=== PATIENT | female | born 1975 | race Caucasian/White ===

== ENCOUNTER 2018-09-18 20:50 | Emergency (ER) | payer BC, MEDICARE ==
--- NOTE | 2018-09-18 21:12 | UC ---
Abdominal Pain Female HPI - HPI Summary HPI Summary: 43-year-old female presents with 3 day history of progressively worsening generalized abdominal pain. States that she has had a couple of days of vaginal spotting. Patient has had history of multiple recurrences of diverticulitis requiring hospitalization. She has had multiple abdominal surgeries including gastric sleeve, appendectomy, cholecystectomy, and a total hysterectomy. Last bowel movement was this morning. Reports loose brown stool. States she normally alternates between constipation and loose stool. Denies fever, chills, nausea, vomiting, blood in stool, melena, back or flank pain, dysuria, frequency, urgency, or vaginal discharge. - History of Current Complaint Stated Complaint: ABD PAIN Time Seen by Provider: 09/18/18 20:59 Hx Obtained From: Patient Allergies/Adverse Reactions: Allergies Allergy/AdvReac Type Severity Reaction Status Date / Time Penicillins Allergy Intermediate Hives Verified 09/18/18 21:15 Sulfa (Sulfonamide Allergy Intermediate Swelling Verified 09/18/18 21:15 Antibiotics) Latex, Natural Rubber Allergy Mild Unknown Verified 09/18/18 21:15 Reaction Details Home Medications: Home Medications EPINEPHrine [Epipen] 0.3 ml INJ Q12HR PRN 09/18/18 [History Confirmed 09/18/18] Gabapentin [Neurontin] 100 mg PO QID 09/18/18 [History Confirmed 09/18/18] hydrOXYzine HCL TAB* [Atarax TAB 50 MG *] 100 mg PO DAILY 09/18/18 [History Confirmed 09/18/18] traZODone TAB* [Desyrel TAB*] 150 mg PO DAILY 09/18/18 [History Confirmed ] PMH/Surg Hx/FS Hx/Imm Hx - Additional Past Medical History Additional PMH: Osteoarthritis, benign lung tumors GI/ History: Diverticulitis - Surgical History Surgical History: Yes - Family History Known Family History: Positive: Non-Contributory Family History: Appendectomy, cholecystectomy, gastric sleeve, thoracic surgery for lung tumors, total hysterectomy, partial bowel resection - Social History Lives: With Family Review of Systems All Other Systems Reviewed And Are Negative: Yes Constitutional: Negative: Fever, Chills Respiratory: Negative: Shortness Of Breath, Cough Cardiovascular: Negative: Palpitations, Chest Pain Gastrointestinal: Positive: Abdominal Pain. Negative: Vomiting, Diarrhea, Nausea Genitourinary: Positive: Abnormal Bleeding. Negative: Dysuria, Hematuria, Frequency, Urgency, Vaginal/Penile Discharge Musculoskeletal: Positive: Negative Neurological: Positive: Negative Is Patient Immunocompromised?: No Physical Exam - Summary Physical Exam Summary: GENERAL APPEARANCE: Well developed, well nourished, alert and cooperative, and appears to be in no acute distress. CARDIAC: Normal S1 and S2. No S3, S4 or murmurs. Rhythm is regular. There is no peripheral edema, cyanosis or pallor. Extremities are warm and well perfused. Capillary refill is less than 2 seconds. Peripheral pulses intact. LUNGS: Clear to auscultation without rales, rhonchi, wheezing or diminished breath sounds. ABDOMEN: Positive bowel sounds. Soft, nondistended. Significant diffuse abdominal tenderness without guarding or rebound. No masses or hepatosplenomegally. No CVA tenderness. MUSKULOSKELETAL: ROM intact to all extremities. No joint erythema or tenderness. Normal muscular development. Normal gait. SKIN: Skin normal color, texture and turgor with no lesions or eruptions. Triage Information Reviewed: Yes Vital Signs Reviewed: Yes Abd Pain Female Course/Dx - Course Course Of Treatment: 43-year-old female presents with 3 day history of progressively worsening generalized abdominal pain. States that she has had a couple of days of vaginal spotting. Patient has had history of multiple recurrences of diverticulitis requiring hospitalization. She has had multiple abdominal surgeries including gastric sleeve, appendectomy, cholecystectomy, and a total hysterectomy. Last bowel movement was this morning. Reports loose brown stool. States she normally alternates between constipation and loose stool. Denies fever, chills, nausea, vomiting, blood in stool, melena, back or flank pain, dysuria, frequency, urgency, or vaginal discharge. Afebrile. Vital signs stable. On exam patient had significant diffuse abdominal tenderness without guarding or rebound. Remainder of exam was unremarkable. Point-of- care urinalysis showed 1+ leukocyte esterase, and trace lysed blood. Urine culture is pending. Based on the patient's history and exam I discussed with her my concern for the possibility of diverticulitis and I'm recommending that she be evaluated in the emergency room further. Patient is agreeable to this and is electing to transport by private vehicle with her friend driving. - Differential Dx/Diagnosis Differential Diagnosis: Bowel Obstruction, Diverticulitis, Urinary Tract Infection Provider Diagnosis: Acute abdominal pain Discharge - Sign-Out/Discharge Documenting (check all that apply): Patient Departure All imaging exams completed and their final reports reviewed: No Studies - Discharge Plan Condition: Stable Disposition: HOME-RECOMMEND TO ED Patient Education Materials: Acute Abdominal Pain (ED) Referrals: No Primary Care Phys,NOPCP [Primary Care Provider] - Additional Instructions: The urine test performed in the clinic today showed a small amount of white blood cells and blood however based on your history and exam I am concerned that this may be her diverticulitis and I'm recommending that you go to the emergency room for further evaluation. Go straight to the ER from here. Do not eat or drink anything until after you have been evaluated. - Billing Disposition and Condition Condition: STABLE Disposition: Home-Recommend to ED
[2018-09-18 21:14] VITALS: BP 115/58
== END 2018-09-18 21:42 | disposition home health service (06) ==
LOC: UCEAST 20:50
DX: R10.84 Generalized abdominal pain (principal)
CPT/HCPCS: 81003; 87086; 99202; G0463

== ENCOUNTER 2018-09-18 22:19 | Emergency (ER) | payer MEDICARE, BC ==
[2018-09-18] MEDS ORDERED: Morphine 4 MG/ML VIAL (1 ml) 4 MG/ML VIAL IV ONE ×2 (22:34→23:55)
[2018-09-18] MEDS ORDERED: Ondansetron INJ* 2 MG/ML VIAL IV ONE (22:34)
[2018-09-18] MEDS ORDERED: NS 0.9% 1000 ML** 2,000 ML IV ONE (22:35)
--- NOTE | 2018-09-18 22:38 | ED ---
GI/ HPI - HPI Summary HPI Summary: 43-year-old female presents with abdominal pain for the past 2 days. States pain is diffuse. started on one side but unsure what side. She states this feels likr diverticulitis in the past. Has had a bowel resection due to diverticulitis. She admits to some loose stool. Has history of loose although with her IBS. She denies any nausea vomiting. She denies any dysuria or hematuria. No flank pain. No fevers. No chest pain or shortness of breath or cough. She states the pain is constant. Has history of appendectomy gallbladder removed and gastric sleeve. - History of Current Complaint Chief Complaint: EDAbdPain Time Seen by Provider: 09/18/18 22:25 Stated Complaint: ABD PAIN, FROM CC PER PT Pain Intensity: 6 - Allergy/Home Medications Allergies/Adverse Reactions: Allergies Allergy/AdvReac Type Severity Reaction Status Date / Time Penicillins Allergy Intermediate Hives Verified 09/18/18 21:15 Sulfa (Sulfonamide Allergy Intermediate Swelling Verified 09/18/18 21:15 Antibiotics) Latex, Natural Rubber Allergy Mild Unknown Verified 09/18/18 21:15 Reaction Details Home Medications: Home Medications Docusate CAP* [Colace Cap*] 100 mg PO DAILY 09/18/18 [History Confirmed 09/18/18 ] L.acidoph,Paracasei, B.lactis [Probiotic] 1 each PO DAILY 09/18/18 [History Confirmed 09/18/18] Multivitamin [Multiple Vitamins] 1 tab PO DAILY 09/18/18 [History Confirmed 06/04] Non Formulary Med2* 1 PO .1 09/18/18 [History] PMH/Surg Hx/FS Hx/Imm Hx Endocrine/Hematology History: Denies: Hx Diabetes Cardiovascular History: Denies: Hx Hypertension Respiratory History: Denies: Hx Asthma, Hx Chronic Obstructive Pulmonary Disease (COPD) - Surgical History Surgery Procedure, Year, and Place: bariatric- sleeve. bowel resection - Immunization History Immunizations Up to Date: Yes Infectious Disease History: No Infectious Disease History: Denies: Traveled Outside the [place] in Last 30 Days - Family History Known Family History: Positive: Non-Contributory Family History: Appendectomy, cholecystectomy, gastric sleeve, thoracic surgery for lung tumors, total hysterectomy, partial bowel resection - Social History Alcohol Use: Occasionally Substance Use Type: Reports: Marijuana Substance Use Comment - Amount & Last Used: medical - occasionally Smoking Status (MU): Never Smoked Tobacco Review of Systems Negative: Fever Negative: Chest Pain Negative: Shortness Of Breath Positive: Abdominal Pain, Diarrhea. Negative: Vomiting, Nausea All Other Systems Reviewed And Are Negative: Yes Physical Exam Triage Information Reviewed: Yes Vital Signs On Initial Exam: Initial Vitals Temp Pulse Resp BP Pulse Ox 97.3 F 83 18 134/85 99 09/18/18 22:22 09/18/18 22:22 09/18/18 22:22 09/18/18 22:22 09/18/18 22:22 Vital Signs Reviewed: Yes Appearance: Positive: Well-Appearing Skin: Positive: Warm, Dry Head/Face: Positive: Normal Head/Face Inspection Eyes: Positive: Normal, Conjunctiva Clear ENT: Positive: Pharynx normal Respiratory/Lung Sounds: Positive: Clear to Auscultation, Breath Sounds Present Cardiovascular: Positive: Normal, RRR Abdomen Description: Positive: Soft, Other: - diffuse tenderness. Negative: CVA Tenderness (R), CVA Tenderness (L) Bowel Sounds: Positive: Present Musculoskeletal: Positive: Normal Neurological: Positive: Normal Psychiatric: Positive: Normal Diagnostics - Vital Signs Vital Signs Temp Pulse Resp BP Pulse Ox 09/18/18 22:22 97.3 F 83 18 134/85 99 - Laboratory Result Diagrams: 09/18/18 22:53 09/18/18 22:53 Lab Statement: Any lab studies that have been ordered have been reviewed, and results considered in the medical decision making process. - CT abd CT Interpretation Completed By: Radiologist Summary of CT Findings: IMPRESSION: There is colonic diverticulosis without evidence for acute diverticulitis. Re-Evaluation - Re-Evaluation First Eval Re-Evaluation Time: 23:59 Change: Worse Comment: morphine helped but pain has returned. GIGU Course/Dx - Course Course Of Treatment: 43-year-old female presents with abdominal pain for the past 2 days. States pain is diffuse. started on one side but unsure what side. She states this feels likr diverticulitis in the past. Has had a bowel resection due to diverticulitis. She admits to some loose stool. Has history of loose although with her IBS. She denies any nausea vomiting. She denies any dysuria or hematuria. No flank pain. No fevers. No chest pain or shortness of breath or cough. She states the pain is constant. Has history of appendectomy gallbladder removed and gastric sleeve. On exam diffuse abdominal tenderness. wbc normal. crp normal. urine looks like uti. patient states has hx of such. will place on cipro as has allergy to cephalosporins, PCN, and sulfa. CT abd no diverticulitis. will treat as uti with cipro. patient understand and agrees with plan. - Diagnoses Differential Diagnoses - Female: Bowel Obstruction, Diverticulosis, Urinary Tract Infection Provider Diagnoses: Abdominal pain, UTI (urinary tract infection) Discharge - Sign-Out/Discharge Documenting (check all that apply): Patient Departure Patient Received Moderate/Deep Sedation with Procedure: No - Discharge Plan Condition: Good Disposition: HOME Prescriptions: Ciprofloxacin TAB* [Cipro 500 MG TAB*] 500 mg PO BID #9 tab Patient Education Materials: Urinary Tract Infection in Women (ED) Referrals: [facility] [place] [facility] [Outside] Additional Instructions: Take Cipro twice a day for 5 days drink plenty of fluids take tyenlol every 6 hours as needed for pain Follow up with primary Return to ED if develop any new or worsening symptoms - Billing Disposition and Condition Condition: GOOD Disposition: Home
[2018-09-18] MEDS ORDERED: diPHENhydraMINE IV* 50 MG/ML 1 ml VIAL (BENADRYL) IV ONE (22:52)
[2018-09-18 23:05] LABS: ABS Lymphocytes 2.2 10^3/ul (1.0-4.8); ABS Monocytes 0.5 10^3/ul (0-0.8); ABS Neutrophils 2.6 10^3/ul (1.5-7.7); Eosinophil % 0.1 %; Hematocrit 35 % (35-47); Hemoglobin 11.9 g/dL (12.0-16.0); Lymphocyte % 41.9 %; Mean Corpuscular HGB Conc 34 g/dL (31-36); Mean Corpuscular Hemoglobin 30 pg (27-31); Mean Corpuscular Volume 87 fL (80-97); Mean Platelet Volume 7.2 fL (7.4-10.4); Platelet Count 195 10^3/uL (150-450); Red Blood Count 3.99 10^6 /uL (3.70-4.87); Red Cell Distribution Width 14 % (10-15); White Blood Count 5.3 10^3/uL (3.5-10.8)
[2018-09-18 23:25] LABS: ALT 17 U/L (7-52); AST 20 U/L (13-39); Albumin/Globulin Ratio 1.8 (1-3); Alkaline Phosphatase 68 U/L (34-104); Anion Gap 4 mmol/L (2-11); BUN/Creatinine Ratio 19.3 (8-20); Blood Urea Nitrogen 16 mg/dL (6-24); C Reactive Protein < 1.00 mg/L (<8.01); CO2 Carbon Dioxide 31 mmol/L (22-32); Chloride 107 mmol/L (101-111); EGFR African American 90.8 (>60); Globulin 2.2 g/dL (2-4); Glucose 97 mg/dL (70-100); Potassium 4.1 mmol/L (3.5-5.0); Sodium 142 mmol/L (135-145); Total Protein 6.2 g/dL (6.4-8.9)
[2018-09-18 23:27] LABS: Urine Appearance Cloudy; Urine Bacteria Absent (Absent); Urine Bilirubin Negative (Negative); Urine Blood 2+ (Negative); Urine Color Yellow; Urine Glucose Negative (Negative); Urine Ketones Negative (Negative); Urine Nitrite Negative (Negative); Urine Protein Negative (Negative); Urine Red Blood Cell 3+(>10/hpf) (Absent); Urine Specific Gravity 1.023 (1.010-1.030); Urine Squamous Epithelial Cell Present (Absent); Urine Urobilinogen Negative (Negative); Urine White Blood Cell 3+(>20/hpf) (Absent)
[2018-09-18 23:29] LABS: HCG Pregnancy 1.15 mIU/mL
[2018-09-18] MEDS ORDERED: Iohexol 300* (CONTRAST) 10 ML SDV IV ONE ×2 (23:35→23:51)
[2018-09-18] MEDS ORDERED: Ciprofloxacin 400MG IVPREMIX(* 400 MG/200 ML BAG IVPB ONE (23:56)
[2018-09-19 01:46] VITALS: BP 113/77
== END 2018-09-19 01:42 | disposition home or self-care (01) ==
LOC: ED 22:19
DX: K57.90 Diverticulosis of intestine, part unspecified, without perforation or abscess without bleeding (principal); R10.9 Unspecified abdominal pain; N39.0 Urinary tract infection, site not specified; Z88.0 Allergy status to penicillin; Z88.2 Allergy status to sulfonamides; R19.7 Diarrhea, unspecified
CPT/HCPCS: 36415; 74177; 80053; 81003; 81015; 83605; 83690; 83735; 84702; 85025; 86140; 96374; 96375; 96376; 99284; J0744; J1200; J2270; J2405; Q9967

== ENCOUNTER 2018-10-30 20:17 | Emergency (ER) | payer BC, MEDICARE ==
[2018-10-30 20:23] VITALS: BP 113/70
--- NOTE | 2018-10-30 20:38 | UC ---
Knee Pain HPI - HPI Summary HPI Summary: Patient is a 43-year-old female here with a right knee injury. Patient fell down the stairs this morning down 4 stairs. Patient landed on her right knee. Patient's had pain in her lateral knee since then. Patient is able labially but has pain when she does. Patient has no numbness or tingling. Patient had no other disease. Patient has had meniscus and fracture surgery in that knee before. Medications reviewed - History of Current Complaint Chief Complaint: UCLowerExtremity Stated Complaint: KNEE INJURY Time Seen by Provider: 10/30/18 20:26 Hx Obtained From: Patient Onset/Duration: Sudden Onset Severity Initially: Moderate Severity Currently: Moderate Pain Intensity: 7 - Allergies/Home Medications Allergies/Adverse Reactions: Allergies Allergy/AdvReac Type Severity Reaction Status Date / Time Penicillins Allergy Intermediate Hives Verified 10/30/18 20:23 Sulfa (Sulfonamide Allergy Intermediate Swelling Verified 10/30/18 20:23 Antibiotics) Latex, Natural Rubber Allergy Mild Unknown Verified 10/30/18 20:23 Reaction Details bupropion [From Wellbutrin] Allergy AGRESSIVELY Verified 10/30/18 20:23 VIOLENT BEHAVIOR PMH/Surg Hx/FS Hx/Imm Hx Previously Healthy: Yes - Surgical History Surgical History: Yes Surgery Procedure, Year, and Place: bariatric- sleeve. bowel resection. 3 C- SECTIONS. THORACIC SURGERY, APPENDECTOMY, CHOLECYSTECTOMY, HERNIA REPAIRS, BILAT PATELLAR RELEASES, MENISCUS REPAIR RIGHT - Family History Known Family History: Positive: Non-Contributory Family History: Appendectomy, cholecystectomy, gastric sleeve, thoracic surgery for lung tumors, total hysterectomy, partial bowel resection - Social History Alcohol Use: Occasionally Substance Use Type: None Substance Use Comment - Amount & Last Used: medical - occasionally Smoking Status (MU): Never Smoked Tobacco Review of Systems All Other Systems Reviewed And Are Negative: Yes Physical Exam - Summary Physical Exam Summary: Vital Signs Reviewed: Yes A+Ox3, no distress Eyes: Conjunctiva Clear ENT: Hearing grossly normal neck: supple Respiratory: Positive: No respiratory distress, No accessory muscle use Cardiovascular: skin color reflect adequate perfusion Musculoskeletal Exam: Right knee with tenderness on the lateral aspect. Full range of motion of both active and passive modality. No swelling or erythema. No lateral or medial joint laxity. Anterior/posterior drawer sign negative. Neurological: Positive: Alert, ambulatory without difficulty Vital Signs: Initial Vital Signs Temp 98.9 F 10/30/18 20:18 Pulse 92 10/30/18 20:18 Resp 16 10/30/18 20:18 BP 113/70 10/30/18 20:18 Pulse Ox 99 10/30/18 20:18 Knee Pain Course/Dx - Course Course Of Treatment: Patient is here after mechanical fall on her right knee. Patient had no other injury. Patient had a negative knee x-ray per my read. Patient had an Scotty wrap applied and was given primary care and orthopedic surgery follow-up. - Differential Dx/Diagnosis Differential Diagnosis/HQI/PQRI: Abrasion, Contusion, Dislocation, Fracture ( Closed), Internal Derangement Of Knee Provider Diagnosis: Right knee sprain, Fall Discharge - Sign-Out/Discharge Documenting (check all that apply): Patient Departure All imaging exams completed and their final reports reviewed: No - Discharge Plan Condition: Stable Disposition: HOME Referrals: [facility] [place] [facility] [Outside] Bill Delarosa MD [Medical Doctor] - No Primary Care Phys,NOPCP [Primary Care Provider] - Additional Instructions: Please rest, ice, elevation knee at the end of the day. Please call your primary care doctor or orthopedic surgeon for further management if you continue to have symptoms. - Billing Disposition and Condition Condition: STABLE Disposition: Home
--- NOTE | 2018-10-31 08:02 | UC ---
- Progress Note Progress Note: wet read correct Course/Dx - Diagnoses Provider Diagnoses: Right knee sprain, Fall Discharge - Sign-Out/Discharge Documenting (check all that apply): Post-Discharge Follow Up All imaging exams completed and their final reports reviewed: Yes - Discharge Plan Condition: Stable Disposition: HOME Referrals: [facility] [place] [facility] [Outside] Bill Delarosa MD [Medical Doctor] - No Primary Care Phys,NOPCP [Primary Care Provider] - Additional Instructions: Please rest, ice, elevation knee at the end of the day. Please call your primary care doctor or orthopedic surgeon for further management if you continue to have symptoms. - Billing Disposition and Condition Condition: STABLE Disposition: Home
== END 2018-10-30 21:15 | disposition home or self-care (01) ==
LOC: UCEAST 20:17
DX: S83.91XA Sprain of unspecified site of right knee, initial encounter (principal); W10.9XXA Fall (on) (from) unspecified stairs and steps, initial encounter; Y92.9 Unspecified place or not applicable; Z88.0 Allergy status to penicillin; Z88.2 Allergy status to sulfonamides; Z91.040 Latex allergy status; Z98.84 Bariatric surgery status
CPT/HCPCS: 99212; G0463

== ENCOUNTER 2019-01-20 11:58 | Emergency (ER) | payer MEDICARE, OTHER ==
--- OUTSIDE RECORDS SUMMARY | 2019-01-20 12:09 | XMS REPORT | Continuity of Care Document ---
:1975 External Reference #:[id number] Author Name Yadira Moise M.D. 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 Problems Active Problems Provider Date Localized, primary osteoarthritis Gerson Almaguer MD Onset: 11/12/2018 Social History Type Date Description Comments Sex Unknown ETOH Use Occasionally consumes alcohol Tobacco Use Start: Unknown Patient has never smoked Smoking Status Reviewed: 12/23/18 Patient has never smoked Exercise Type/Frequency Does not exercise Allergies, Adverse Reactions, Alerts Active Allergies Reaction Severity Comments Date Penicillin 11/12/2018 Sulfa Antibiotics 11/12/2018 Latex 11/12/2018 Adhesive 11/12/2018 Medications Active Medications SIG Qnty Indications Ordering Provider Date Hydroxyzine Pamoate Unknown 50mg Capsules Trazodone HCL Unknown 150mg Tablets Gabapentin Unknown 100mg Capsules Multivital Unknown Colace 2-In-1 Unknown Fiber Unknown Epipen 2-Prince Unknown Probiotic Unknown Immunizations Description No Information Available Vital Signs Date Vital Result Comment 12/23/2018 8:32am Height 65 inches 5'5" Weight 165.00 lb Heart Rate 84 /min BP Systolic 124 mmHg BP Diastolic 82 mmHg Body Temperature 96.6 F Pain Level 6 BMI (Body Mass Index) 27.5 kg/m2 12/03/2018 2:16pm Height 65 inches 5'5" Weight 165.00 lb Heart Rate 88 /min BP Systolic Sitting 122 mmHg BP Diastolic Sitting 80 mmHg Body Temperature 98.4 F Pain Level 8 BMI (Body Mass Index) 27.5 kg/m2 Results Description No Information Available Procedures Description No Information Available Medical Devices Description No Information Available Encounters Type Date Location Provider Dx Diagnosis Office Visit 12/03/2018 [facility] Gerson Almaguer MD M17.11 Unilateral primary 2:15p at [place] osteoarthritis, right knee M23.303 Oth meniscus derangements, unsp medial meniscus, right knee Office Visit 11/12/2018 Tiffanie Almaguer, M17.11 Unilateral primary 2:30p [facility], [place] right knee M17.12 Unilateral primary osteoarthritis, left knee M17.0 Bilateral primary osteoarthritis of knee Assessments Date Code Description Provider 12/23/2018 M25.562 Pain in left knee Yadira Moise M.D. 12/23/2018 M25.561 Pain in right knee Yadira Moise M.D. 12/23/2018 M25.462 Effusion, left knee Yadira Moise M.D. 12/23/2018 M25.461 Effusion, right knee Yadira Moise M.D. 12/23/2018 M17.0 Bilateral primary osteoarthritis of knee Yadira Moise M.D. 12/23/2018 M23.303 Other meniscus derangements, unspecified medial Yadira Moise M.D. meniscus, right knee 12/03/2018 M17.11 Unilateral primary osteoarthritis, right knee Gerson Almaguer MD 12/03/2018 M23.303 Other meniscus derangements, unspecified medial Gerson Almaguer MD meniscus, right knee 11/12/2018 M17.11 Unilateral primary osteoarthritis, right knee Gerson Almaguer MD 11/12/2018 M17.12 Unilateral primary osteoarthritis, left knee Gerson Almaguer MD 11/12/2018 M17.0 Bilateral primary osteoarthritis of knee Gerson Almaguer MD Plan of Treatment 12/23/2018 - Yadira Moise M.D.M25.562 Pain in left kneeM25.561 Pain in right kneeM25.462 Effusion, left kneeM25.461 Effusion, right kneeM17.0 Bilateral primary osteoarthritis of kneeFollow up:Follow up: [employer] authorization needed. Follow up appointment LEONEL. bilat kneeM23.303 Other meniscus derangements, unspecified medial meniscus, right knee Functional Status Description No Information Available Mental Status Description No Information Available Referrals Description No Information Available
--- OUTSIDE RECORDS SUMMARY | 2019-01-20 12:09 | XMS REPORT | Continuity of Care Document ---
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 Problems Active Problems Provider Date Localized, primary osteoarthritis Gerson Almaguer MD Onset: 11/12/2018 Social History Type Date Description Comments Sex Unknown ETOH Use Occasionally consumes alcohol Tobacco Use Start: Unknown Patient has never smoked Smoking Status Reviewed: 12/03/18 Patient has never smoked Exercise Type/Frequency Does not exercise Allergies, Adverse Reactions, Alerts Active Allergies Reaction Severity Comments Date Penicillin 11/12/2018 Sulfa Antibiotics 11/12/2018 Latex 11/12/2018 Adhesive 11/12/2018 Medications Active Medications SIG Qnty Indications Ordering Provider Date Hydroxyzine Pamoate Unknown 50mg Capsules Trazodone HCL Unknown 150mg Tablets Gabapentin Unknown 100mg Capsules Multivital Unknown Colace 2-In-1 Unknown Fiber Unknown Epipen 2-Prince Unknown Immunizations Description No Information Available Vital Signs Date Vital Result Comment 12/03/2018 2:16pm Height 65 inches 5'5" Weight 165.00 lb Heart Rate 88 /min BP Systolic Sitting 122 mmHg BP Diastolic Sitting 80 mmHg Body Temperature 98.4 F Pain Level 8 BMI (Body Mass Index) 27.5 kg/m2 11/12/2018 3:12pm Height 65 inches 5'5" Weight 156.00 lb Heart Rate 88 /min BP Systolic 108 mmHg BP Diastolic 68 mmHg Pain Level 8 BMI (Body Mass Index) 26.0 kg/m2 Results Description No Information Available Procedures Description No Information Available Medical Devices Description No Information Available Encounters Type Date Location Provider Dx Diagnosis Office Visit 12/03/2018 [facility] Gerson Almaguer MD M17.11 Unilateral primary 2:[facility] oste[facility], right knee S83.241D Oth tear of medial meniscus, current injury, r knee, subs Office Visit 11/12/2018 [facility] Gerson Almaguer, M17.11 Unilateral primary 2:30p [facility], right [facility] knee M17.12 Unilateral primary osteoarthritis, left knee M17.0 Bilateral primary osteoarthritis of knee Assessments Date Code Description Provider 12/03/2018 M17.11 Unilateral primary osteoarthritis, right knee Gerson Almaguer MD 12/03/2018 S83.241D Other tear of medial meniscus, current injury, Gerson Almaguer MD right knee, subsequent encounter 11/12/2018 M17.11 Unilateral primary osteoarthritis, right knee Gerson Almaguer MD 11/12/2018 M17.12 Unilateral primary osteoarthritis, left knee Gerson Almaguer MD 11/12/2018 M17.0 Bilateral primary osteoarthritis of knee Gerson Almaguer MD Plan of Treatment Future Appointment(s):12/23/2018 8:00 am - Yadira Moise M.D. at [facility]12/03/2018 - Gerson Almaguer, MDM17.11 Unilateral primary osteoarthritis, right kneeFollow up:Follow up: with Dr. Moise in the next week or twoS83.241D Other tear of medial meniscus, current injury, right knee, subsequent encounter Functional Status Description No Information Available Mental Status Description No Information Available Referrals Description No Information Available
--- NOTE | 2019-01-20 14:23 | UC ---
Complaint Female HPI - HPI Summary HPI Summary: Patient is a 43-year-old female presenting with frequency of urination 4 days that has gradually worsened. Patient states she gets recurrent UTIs often without evident symptoms. Denies burning or blood in the urine. Denies abdominal or pelvic pain. Denies flank pain. Denies fevers and chills. Denies nausea and vomiting. Also notes she has bodyaches over the past few days and has felt run down. 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 Patient also notes "itching all over"from chronic idiopathic hives. Patient states she recently moved to [facility] and no longer has a PCP to prescribe her hydroxyzine. Patient also notes she has fibromyalgia. - History Of Current Complaint Chief Complaint: UCGU Stated Complaint: URINARY ISSUE FATIGUE ITCHY Hx Obtained From: Patient Hx Last Menstrual Period: hyster Onset/Duration: Gradual Onset, Lasting Days Pain Intensity: 3 - Allergies/Home Medications Allergies/Adverse Reactions: Allergies Allergy/AdvReac Type Severity Reaction Status Date / Time Penicillins Allergy Intermediate Hives Verified 01/20/19 12:28 Sulfa (Sulfonamide Allergy Intermediate Swelling Verified 01/20/19 12:28 Antibiotics) bupropion [From Wellbutrin] Allergy AGRESSIVELY Verified 01/20/19 12:28 VIOLENT BEHAVIOR Latex, Natural Rubber AdvReac Mild Rash Verified 01/20/19 12:28 PMH/Surg Hx/FS Hx/Imm Hx - Additional Past Medical History Additional PMH: Fibromyalgia Psychological History: Bipolar Disorder - Surgical History Surgical History: Yes Surgery Procedure, Year, and Place: bariatric- sleeve. bowel resection. 3 C- SECTIONS. THORACIC SURGERY ( 13 CYST REMOVED FROM LUNGS), APPENDECTOMY, CHOLECYSTECTOMY, HERNIA REPAIRS, BILAT PATELLAR RELEASES, MENISCUS REPAIR RIGHT. HYSTERECTOMY - Family History Known Family History: Positive: Unknown, Non-Contributory Family History: Appendectomy, cholecystectomy, gastric sleeve, thoracic surgery for lung tumors, total hysterectomy, partial bowel resection - Social History Occupation: Employed Full-time Alcohol Use: Occasionally Substance Use Type: None Substance Use Comment - Amount & Last Used: medical - occasionally Smoking Status (MU): Never Smoked Tobacco Review of Systems All Other Systems Reviewed And Are Negative: Yes Constitutional: Positive: Fatigue. Negative: Fever, Chills Skin: Positive: Other - Pruritus all over Eyes: Positive: Negative ENT: Positive: Sinus Congestion. Negative: Sore Throat, Ear Ache, Nasal Discharge, Sinus Pain/Tenderness Respiratory: Positive: Negative. Negative: Shortness Of Breath, Cough Cardiovascular: Positive: Negative Gastrointestinal: Positive: Negative. Negative: Abdominal Pain, Vomiting, Nausea Genitourinary: Positive: Frequency, Urgency. Negative: Dysuria, Hematuria, Vaginal/Penile Burning, Vaginal/Penile Itching, Vaginal/Penile Discharge, Vaginal/Penile Pain, Vaginal/Penile Tenderness, Ulceration/Lesion, Abnormal Bleeding Musculoskeletal: Positive: Myalgia Neurological: Positive: Negative Physical Exam Triage Information Reviewed: Yes Appearance: Well-Appearing, No Pain Distress, Well-Nourished Vital Signs: Initial Vital Signs Temp 97.2 F 01/20/19 12:25 Pulse 75 01/20/19 12:25 Resp 16 01/20/19 12:25 BP 116/70 01/20/19 12:25 Pulse Ox 100 01/20/19 12:25 Lab Results 01/20/19 Range/Units 13:41 POC Urine Color Yellow POC Urine Clarity Clear POC Urine pH 5.0 (5-9) POC Ur Specif [place] >= 1.030 (1.010-1.030) POC Urine Protein Negative (Negative) POC Ur Glucose (UA) Negative (Negative) POC Urine Ketones Negative (Negative) POC Urine Blood 1+ A (Negative) POC Urine Nitrite Negative (Negative) POC Urine Bilirubin Negative (Negative) POC Urine Urobilinogen 0.2 (Negative) POC U Leukocyte Esteras Negative (Negative) Vital Signs Reviewed: Yes Eyes: Positive: Conjunctiva Clear ENT: Positive: Hearing grossly normal, Pharynx normal, TMs normal, Uvula midline. Negative: Nasal congestion, Nasal drainage Neck exam: Normal Neck: Positive: Supple, Nontender, No Lymphadenopathy Respiratory Exam: Normal Respiratory: Positive: Lungs clear, Normal breath sounds, No respiratory distress Cardiovascular Exam: Normal Cardiovascular: Positive: RRR Abdominal Exam: Normal Abdomen Description: Positive: Nontender, Soft. Negative: CVA Tenderness (R), CVA Tenderness (L) Neurological: Positive: Alert Psychological: Positive: Age Appropriate Behavior Skin Exam: Normal Skin: Negative: Rashes Complaint Female Dx - Course Course Of Treatment: I treated the patient with Macrobid for possible UTI given symptoms and blood in the urine. I also gave refill for hydroxyzine to help alleviate the pruritus. Discussed negative rapid flu with patient and to continue with symptomatic care including rest and fluids. I instructed the patient to follow- up with the physician referral for further evaluation of symptoms within the next week. Patient voiced understanding and agreed with the treatment plan. - Differential Dx/Diagnosis Provider Diagnosis: Pruritus of skin, UTI (urinary tract infection) Discharge ED - Sign-Out/Discharge Documenting (check all that apply): Patient Departure All imaging exams completed and their final reports reviewed: No Studies - Discharge Plan Condition: Stable Disposition: HOME Prescriptions: hydrOXYzine HCL TAB* [Atarax 25 MG TAB*] 25 mg PO TID PRN #60 tab PRN Reason: Itching Nitrofurantoin Monohyd/M-Cryst [Macrobid 100 mg Capsule] 100 mg PO BID #10 cap Patient Education Materials: Hydroxyzine (By mouth), Urinary Tract Infection in Women (ED) Forms: *Work Release Referrals: [facility] [Outside] - 1 Week Additional Instructions: As discussed, take Macrobid as prescribed for treatment of your UTI. Make sure you increase your fluid intake as well. Take hydroxyzine as prescribed for treatment of you itching/hives. Follow up with the physician referral listed below if any of your symptoms persist. Go to the emergency room if your symptoms worsen. - Billing Disposition and Condition Condition: STABLE Disposition: Home - Attestation Statements Provider Attestation: I was available for consult. This patient was seen by the YULIA. The patient was not presented to, seen by, or examined by me. -Suki
[2019-01-20 14:52] LABS: Influenza A Molecular NEGATIVE (Negative); Influenza B Molecular NEGATIVE (Negative)
[2019-01-20 15:25] VITALS: BP 118/70
== END 2019-01-20 15:15 | disposition home or self-care (01) ==
LOC: UCEAST 11:58
DX: N39.0 Urinary tract infection, site not specified (principal); L29.9 Pruritus, unspecified; M79.7 Fibromyalgia; F31.9 Bipolar disorder, unspecified; R53.83 Other fatigue; J34.89 Other specified disorders of nose and nasal sinuses; M79.10 Myalgia, unspecified site; Z88.0 Allergy status to penicillin; Z88.2 Allergy status to sulfonamides; Z88.8 Allergy status to other drugs, medicaments and biological substances; Z91.040 Latex allergy status
CPT/HCPCS: 81003; 99212; G0463

== ENCOUNTER 2019-02-16 12:04 | Emergency (ER) | payer OTHER, MEDICARE ==
[2019-02-16] MEDS ORDERED: Ondansetron INJ* 2 MG/ML VIAL IV ONE ×2 (12:23→14:12)
[2019-02-16] MEDS ORDERED: Thiamine INJ* 100 MG, Folic Acid IV* 1 MG, Multiple Vitamin IV ADULT* 10 ML in NS 0.9% ... IV ONE (12:23)
[2019-02-16] MEDS ORDERED: Morphine 4 MG/ML VIAL (1 ml) 4 MG/ML VIAL IV ONE (12:23)
[2019-02-16 12:29] LABS: ABS Lymphocytes 1.6 10^3/ul (1.0-4.8); ABS Monocytes 0.5 10^3/ul (0-0.8); ABS Neutrophils 3.3 10^3/ul (1.5-7.7); Eosinophil % 0.1 %; Hematocrit 41 % (35-47); Lymphocyte % 29.4 %; Mean Corpuscular HGB Conc 35 g/dL (31-36); Mean Corpuscular Hemoglobin 30 pg (27-31); Mean Corpuscular Volume 87 fL (80-97); Mean Platelet Volume 7.6 fL (7.4-10.4); Nucleated Red Blood Cells % 0.2; Platelet Count 200 10^3/uL (150-450); Red Cell Distribution Width 14 % (10-15); White Blood Count 5.5 10^3/uL (3.5-10.8)
--- NOTE | 2019-02-16 12:41 | ED ---
Abdominal Pain/Female - HPI Summary HPI Summary: 43-year-old female with significant past medical history of gastric sleeve 2 years ago, chronic pancreatitis, diverticulosis presents to the emergency department today complaining of left lower quadrant abdominal pain which began yesterday afternoon. She states her pain is 7 out of 10 cramping/ stabbing feeling in her left lower abdomen. She states her pain has progressively gotten worse since it began yesterday afternoon. She denies bloody bowel movements but does state they have been darker. She states she has not taken anything for her pain prior to arrival due to her gastric bypass. She endorses nausea. She denies fever, vomiting, chest pain, shortness of breath, rash, pain with urination. - History of Current Complaint Chief Complaint: EDAbdPain Stated Complaint: ABDOMINAL PAIN PER PT Time Seen by Provider: 02/16/19 12:07 Hx Obtained From: Patient Hx Last Menstrual Period: hyster Onset/Duration: Gradual Onset, Lasting Hours, Lasting Days Timing: Constant Severity Initially: Mild Severity Currently: Severe Pain Intensity: 7 Pain Scale Used: 0-10 Numeric Location: Discrete At: LLQ Radiates: No Character: Sharp, Cramping Aggravating Factor(s): Movement Alleviating Factor(s): Position Associated Signs and Symptoms: Positive: Decreased Appetite, Nausea. Negative: Diaphoresis, Fever, Cough, Chest Pain, Back Pain, Constipation, Blood in Stool, Urinary Symptoms, Vaginal Bleeding, Vomiting, Diarrhea Allergies/Adverse Reactions: Allergies Allergy/AdvReac Type Severity Reaction Status Date / Time Penicillins Allergy Intermediate Hives Verified 02/16/19 12:08 Sulfa (Sulfonamide Allergy Intermediate Swelling Verified 02/16/19 12:08 Antibiotics) bupropion [From Wellbutrin] Allergy AGRESSIVELY Verified 02/16/19 12:08 VIOLENT BEHAVIOR Latex, Natural Rubber AdvReac Mild Rash Verified 02/16/19 12:08 PMH/Surg Hx/FS Hx/Imm Hx Endocrine/Hematology History: Denies: Hx Diabetes Cardiovascular History: Denies: Hx Hypertension, Hx Pacemaker/ICD Respiratory History: Denies: Hx Asthma, Hx Chronic Obstructive Pulmonary Disease (COPD) History: Denies: Hx Dialysis, Hx Renal Disease Sensory History: Denies: Hx Hearing Aid Psychiatric History: Denies: Hx Panic Disorder - Surgical History Surgery Procedure, Year, and Place: bariatric- sleeve. bowel resection. 3 C- SECTIONS. THORACIC SURGERY ( 13 CYST REMOVED FROM LUNGS), APPENDECTOMY, CHOLECYSTECTOMY, HERNIA REPAIRS, BILAT PATELLAR RELEASES, MENISCUS REPAIR RIGHT. HYSTERECTOMY Infectious Disease History: No Infectious Disease History: Reports: [place] Kelsey Denies: Traveled Outside the [place] in Last 30 Days - Family History Known Family History: Positive: Unknown, Non-Contributory Family History: Appendectomy, cholecystectomy, gastric sleeve, thoracic surgery for lung tumors, total hysterectomy, partial bowel resection - Social History Alcohol Use: Occasionally Substance Use Type: Reports: None Substance Use Comment - Amount & Last Used: medical - occasionally Smoking Status (MU): Never Smoked Tobacco Review of Systems Constitutional: Negative Eyes: Negative ENT: Negative Cardiovascular: Negative Respiratory: Negative Positive: Abdominal Pain, Nausea. Negative: Vomiting, Diarrhea Genitourinary: Negative Musculoskeletal: Negative Skin: Negative Neurological: Negative Psychological: Normal All Other Systems Reviewed And Are Negative: Yes Physical Exam Triage Information Reviewed: Yes Vital Signs On Initial Exam: Initial Vitals Temp Pulse Resp BP Pulse Ox 97.4 F 79 16 140/77 99 02/16/19 12:06 02/16/19 12:06 02/16/19 12:06 02/16/19 12:06 02/16/19 12:06 Vital Signs Reviewed: Yes Appearance: Positive: Well-Appearing, No Pain Distress, Well-Nourished Skin: Positive: Warm, Skin Color Reflects Adequate Perfusion Eyes: Positive: EOMI, CY ENT: Positive: Hearing grossly normal Respiratory/Lung Sounds: Positive: Clear to Auscultation, Breath Sounds Present Cardiovascular: Positive: RRR, S1, S2 Abdomen Description: Positive: No Organomegaly, Soft, Other: - Inspection reveals abdominal striae. No ecchymosis or masses appreciated auscultation reveals normoactive bowel sounds. Palpation reveals significant tenderness to the left lower quadrant and mild tenderness to the left upper quadrant. No McBurney's point tenderness. Negative Rovsing, obturator, psoas sign.. Negative: CVA Tenderness (R), CVA Tenderness (L), Distended, Guarding, McBurney' s Point Tenderness, Peritoneal Signs, Pulsatile Mass Bowel Sounds: Positive: Present Musculoskeletal: Positive: Strength/ROM Intact Neurological: Positive: Sensory/Motor Intact, Normal Gait, Speech Normal Psychiatric: Positive: Normal, Affect/Mood Appropriate AVPU Assessment: Alert Procedures - Sedation Patient Received Moderate/Deep Sedation with Procedure: No Diagnostics - Vital Signs Vital Signs Temp Pulse Resp BP Pulse Ox 02/16/19 12:06 97.4 F 79 16 140/77 99 - Laboratory Lab Results: Lab Results 02/16/19 Range/Units 12:21 WBC 5.5 (3.5-10.8) 10^3/uL RBC 4.70 (3.70-4.87) 10^6 /uL Hgb 14.0 (12.0-16.0) g/dL Hct 41 (35-47) % MCV 87 (80-97) fL MCH 30 (27-31) pg MCHC 35 (31-36) g/dL RDW 14 (10-15) % Plt Count 200 (150-450) 10^3/uL MPV 7.6 (7.4-10.4) fL Neut % (Auto) 60.5 % Lymph % (Auto) 29.4 % [place] % (Auto) 9.9 % Eos % (Auto) 0.1 % Baso % (Auto) 0.1 % Absolute Neuts (auto) 3.3 (1.5-7.7) 10^3/ul Absolute Lymphs (auto) 1.6 (1.0-4.8) 10^3/ul Absolute Monos (auto) 0.5 (0-0.8) 10^3/ul Absolute Eos (auto) 0.0 (0-0.6) 10^3/ul Absolute Basos (auto) 0.0 (0-0.2) 10^3/ul Absolute Nucleated RBC 0.0 10^3/ul Nucleated RBC % 0.2 Result Diagrams: 02/16/19 12:21 02/16/19 12:21 Lab Statement: Any lab studies that have been ordered have been reviewed, and results considered in the medical decision making process. Abdominal Pain Fem Course/Dx - Course Course Of Treatment: Patient was evaluated in the emergency department today for left lower quadrant pain. Vital signs are stable she is afebrile. An IV was established and she was given a banana bag due to her history of gastric sleeve. She was given 25 g of fentanyl for pain as well as 4 mg of morphine for nausea. WBC 5.5, no evidence of leukocytosis. CRP is WNL, negative test. No evidence of anemia with H&H 14.0/41. No significant electrolyte disturbance. Urinalysis is negative for UTI. CT Scan of the abdomen and pelvis with oral and IV contrast shows: Colonic diverticulosis with no evidence of diverticulitis. Patient is status post sigmoid colectomy, status post appendectomy, status post gastric sleeve procedure, status post cholecystectomy, status post hysterectomy. There are small bilateral nonobstructive renal calculi noted. Patient's CT and labs suggest there is no acute infectious process causing her symptoms. She is to take Tylenol for pain as needed. She is to follow-up with her primary care provider 2-3 days for further evaluation and management of her symptoms and referral to GI or general surgery. She was told to return to the emergency department immediately if she developed any new or worsening symptoms. Patient agrees with plan. - Diagnoses Differential Diagnosis: Positive: Diverticulitis, Pancreatitis, Urinary Tract Infection, Other - Diverticulosis Provider Diagnoses: Diverticulosis - Provider Notifications Discussed Care Of Patient With: Josephine Guerrero - Agreed pt is stable to follow up as an outpatient for further evaluation and there are no acute concerns. Time Discussed With Above Provider: 16:03 Discharge ED - Sign-Out/Discharge Documenting (check all that apply): Patient Departure - Discharge Plan Condition: Stable Disposition: HOME Patient Education Materials: Abdominal Pain (ED) Referrals: [facility] [Outside] - 2 Days No Primary Care Phys,NOPCP [Primary Care Provider] - Additional Instructions: You were seen in the ER today for abdominal pain. Your laboratory markers were all normal and your CT scan showed no acute infectious process explaining your symptoms. There is evidence of diverticulosis but this does not necessarily explain your pain. I am not sure what is causing your symptoms but please follow up with your primary care doctor in 1-2 days for further evaluation and management of your symptoms as well as referral to a rivet machine operator or general surgeon for further investigation. You may take Tylenol as needed for pain. Please return to the emergency department immediately if you develop any new or worsening symptoms. - Billing Disposition and Condition Condition: STABLE Disposition: Home
[2019-02-16] MEDS ORDERED: fentaNYL* 50 MCG/ML 2 ML VIAL (100 MCG VIAL) IV SLOW PU PRN ×2 (12:44→14:12)
[2019-02-16 12:45] LABS: ALT 15 U/L (7-52); AST 16 U/L (13-39); Albumin 4.2 g/dL (3.2-5.2); Alkaline Phosphatase 80 U/L (34-104); Anion Gap 4 mmol/L (2-11); BUN/Creatinine Ratio 20.3 (8-20); Blood Urea Nitrogen 14 mg/dL (6-24); C Reactive Protein < 1.00 mg/L (<8.01); CO2 Carbon Dioxide 31 mmol/L (22-32); Calcium 9.2 mg/dL (8.6-10.3); Chloride 104 mmol/L (101-111); EGFR African American 112.4 (>60); EGFR Non-African American 92.9 (>60); Globulin 2.1 g/dL (2-4); Glucose 84 mg/dL (70-100); Magnesium 1.8 mg/dL (1.9-2.7); Potassium 4.5 mmol/L (3.5-5.0); Sodium 139 mmol/L (135-145); Total Protein 6.3 g/dL (6.4-8.9)
[2019-02-16 12:51] LABS: HCG Pregnancy 1.74 mIU/mL
[2019-02-16 13:20] LABS: Urine Appearance Cloudy; Urine Bilirubin Negative (Negative); Urine Blood Negative (Negative); Urine Color Yellow; Urine Glucose Negative (Negative); Urine Ketones Negative (Negative); Urine Nitrite Negative (Negative); Urine Protein Negative (Negative); Urine Specific Gravity 1.016 (1.010-1.030); Urine Urobilinogen Negative (Negative)
[2019-02-16] MEDS ORDERED: Iohexol 300* (CONTRAST) 10 ML SDV IV ONE (14:06)
[2019-02-16 16:29] VITALS: BP 118/78
== END 2019-02-16 16:23 | disposition home or self-care (01) ==
LOC: ED 12:04
DX: K57.30 Diverticulosis of large intestine without perforation or abscess without bleeding (principal); N20.0 Calculus of kidney; Z98.84 Bariatric surgery status; Z90.49 Acquired absence of other specified parts of digestive tract; Z90.710 Acquired absence of both cervix and uterus; Z90.89 Acquired absence of other organs; Z88.0 Allergy status to penicillin; Z88.2 Allergy status to sulfonamides; Z88.8 Allergy status to other drugs, medicaments and biological substances; Z91.040 Latex allergy status
CPT/HCPCS: 36415; 74177; 80053; 81003; 83605; 83690; 83735; 84702; 85025; 86140; 96365; 96366; 96375; 96376; 99283; J2405; J3010; J3411; Q9967

== ENCOUNTER 2019-03-03 12:38 | Emergency (ER) | payer MEDICARE, OTHER ==
[2019-03-03 12:50] VITALS: BP 123/73
--- NOTE | 2019-03-03 13:21 | UC ---
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 She comes today because of increasing swelling and pain in the left side of the face and neck. She has mild dysphagia, no fever, and no dental pain or sensitivity. She denies diplopia, but has a headache and reports pain with lateral gaze t the left. Acetaminophen 650mg last dose at 9:30 without relief of pain. - History of Current Complaint Chief Complaint: UCGeneralIllness Stated Complaint: NECK/FACE SWOLLEN Time Seen by Provider: 03/03/19 12:56 Hx Obtained From: Patient Hx Last Menstrual Period: hyster Onset/Duration: Gradual Onset, Lasting Days - 3 Severity: Moderate Pain Intensity: 8 Cough: None Associated Signs & Symptoms: Positive: Dysphagia. Negative: Fever, Vomiting - Epiglottits Risk Factors Epiglottis Risk Factors: Negative - Allergies/Home Medications Allergies/Adverse Reactions: Allergies Allergy/AdvReac Type Severity Reaction Status Date / Time Penicillins Allergy Intermediate Hives Verified 03/03/19 12:50 Sulfa (Sulfonamide Allergy Intermediate Swelling Verified 03/03/19 12:50 Antibiotics) bupropion [From Wellbutrin] Allergy AGRESSIVELY Verified 03/03/19 12:50 VIOLENT BEHAVIOR Latex, Natural Rubber AdvReac Mild Rash Verified 03/03/19 12:50 Home Medications: Home Medications Gabapentin CAP(*) [Neurontin 100 mg CAP(*)] 300 mg PO DAILY 03/03/19 [History Confirmed 03/03/19] PMH/Surg Hx/FS Hx/Imm Hx - Additional Past Medical History Additional PMH: chronic urticaria Previously Healthy: No - chronic pain, post bariatric surgery Psychological History: Anxiety - Surgical History Surgical History: Yes Surgery Procedure, Year, and Place: bariatric- sleeve. bowel resection. 3 C- SECTIONS. THORACIC SURGERY ( 13 CYST REMOVED FROM LUNGS), APPENDECTOMY, CHOLECYSTECTOMY, HERNIA REPAIRS, BILAT PATELLAR RELEASES, MENISCUS REPAIR RIGHT. HYSTERECTOMY - Family History Known Family History: Positive: Non-Contributory Family History: Appendectomy, cholecystectomy, gastric sleeve, thoracic surgery for lung tumors, total hysterectomy, partial bowel resection - Social History Occupation: Employed Full-time Lives: Alone Alcohol Use: Occasionally Substance Use Type: None Substance Use Comment - Amount & Last Used: medical - occasionally Smoking Status (MU): Never Smoked Tobacco Review of Systems All Other Systems Reviewed And Are Negative: Yes Constitutional: Positive: Fatigue - chronically poor sleep Skin: Positive: Negative Eyes: Negative: Blurred Vision, Diplopia, Photophobia ENT: Positive: Ear Ache, Other - left facial pain Respiratory: Positive: Negative Cardiovascular: Positive: Negative Gastrointestinal: Positive: Negative Genitourinary: Positive: Negative Motor: Positive: Negative Neurovascular: Positive: Negative Musculoskeletal: Positive: Negative Neurological: Positive: Headache Psychological: Positive: Anxious Is Patient Immunocompromised?: No Physical Exam Triage Information Reviewed: Yes Appearance: Ill-Appearing - looks pale and unwell Vital Signs: Initial Vital Signs Temp 98.6 F 03/03/19 12:46 Pulse 108 03/03/19 12:46 Resp 20 03/03/19 12:46 BP 123/73 03/03/19 12:46 Pulse Ox 100 03/03/19 12:46 Eye Exam: Other - MICHA, no photophobia. Normal EOM. Eyes: Positive: Conjunctiva Clear ENT: Positive: Pharynx normal, TMs normal - Normal left ear canal without swelling or debris., Other - left facial swelling, mild across chin. Marked tenderness over angle of jaw with tenderness. Erythema of the past auricular area with swelling and tenderness. Dental Exam: Normal - No percussive tenderness, healthy appearance to gums and teeth, no abscess seen. Neck: Positive: Supple, Nontender, Enlarged Nodes @ - enlarged node top off left anterior cervical chain. Respiratory: Positive: Lungs clear, Normal breath sounds Cardiovascular: Positive: No Murmur, Tachycardia Musculoskeletal Exam: Normal Neurological Exam: Normal Neurological: Positive: Alert Psychological Exam: Normal - mildly anxious Skin Exam: Other - warmth and erythema posterior to the left auricle Throat Pain/Nasal Course/Dx - Course Course Of Treatment: Discussed that imaging studies are indicated due to the one sided facial swelling with possible extensive cellulitisl She will proceed to the ER for further work up - Differential Dx/Diagnosis Differential Diagnosis/HQI/PQRI: Other - parotitis, parotid stone, cellulitisl Provider Diagnosis: Parotid gland enlargement - Physician Notification/Consults Discussed Patient Care With: Ruddy Machuca Time Discussed With Above Provider: 13:15 Discharge ED - Sign-Out/Discharge Documenting (check all that apply): Patient Departure All imaging exams completed and their final reports reviewed: No Studies - Discharge Plan Condition: Stable Disposition: TRANS HIGHER L OF CARE FAC Patient Education Materials: Parotid Duct Obstruction (ED) Referrals: Florencio Blackburn MD [Primary Care Provider] - Additional Instructions: Please proceed directly to the emergency room for evaluation as we discussed. - Billing Disposition and Condition Condition: STABLE Disposition: Trans Higher Lvl of Care Fac
== END 2019-03-03 13:34 | disposition short-term general hospital (02) ==
LOC: UCEAST 12:38
DX: E21.0 Primary hyperparathyroidism (principal); R51 Headache; F41.9 Anxiety disorder, unspecified; Z88.0 Allergy status to penicillin; Z88.2 Allergy status to sulfonamides; Z88.8 Allergy status to other drugs, medicaments and biological substances; Z91.040 Latex allergy status; Z79.899 Other long term (current) drug therapy
CPT/HCPCS: 99212; G0463

== ENCOUNTER 2019-03-03 13:56 | Emergency (ER) | payer MEDICARE, OTHER ==
--- NOTE | 2019-03-03 16:26 | ED ---
Throat Pain/Nasal Congestion - HPI Summary HPI Summary: This patient is a 43 year old F presenting to [facility] with a chief complaint of jaw pain since 3 days ago. Symptoms aggravated by nothing. Symptoms alleviated by nothing. Patient reports pain on jaw on 3 days ago (thought it was earache) but woke up this morning swollen and hurting finding it harder to breath and swallow. Pt reports left jaw line concentration of swollen, low grade fever yesterday, not so much sore but tight throat, hard to move left eye to the left due to pain. Denies teeth pain, sputum coming out of nose or mouth, chills, erythema of eyes, sore throat, CP, SOB, cough, abdominal pain, N/V, dysuria, hematuria, myalgia, edema, rash, or dizziness. Mhx Bipolar, fibromyalgia, diverticulitis, arthritis. - History of Current Complaint Chief Complaint: EDFacialInjury Time Seen by Provider: 03/03/19 16:11 Hx Obtained From: Patient Onset/Duration: Lasting Days, Still Present Cough: None - Allergies/Home Medications Allergies/Adverse Reactions: Allergies Allergy/AdvReac Type Severity Reaction Status Date / Time Penicillins Allergy Intermediate Hives Verified 03/03/19 14:29 Sulfa (Sulfonamide Allergy Intermediate Swelling Verified 03/03/19 14:29 Antibiotics) bupropion [From Wellbutrin] Allergy AGRESSIVELY Verified 03/03/19 14:29 VIOLENT BEHAVIOR Latex, Natural Rubber AdvReac Mild Rash Verified 03/03/19 14:29 Home Medications: Home Medications hydrOXYzine HCL TAB* [Atarax TAB 50 MG *] 50 mg PO QID PRN 03/03/19 [History Confirmed 03/03/19] PMH/Surg Hx/FS Hx/Imm Hx Endocrine/Hematology History: Denies: Hx Diabetes Cardiovascular History: Denies: Hx Hypertension, Hx Pacemaker/ICD Respiratory History: Denies: Hx Asthma, Hx Chronic Obstructive Pulmonary Disease (COPD) History: Denies: Hx Dialysis, Hx Renal Disease Sensory History: Denies: Hx Hearing Aid Psychiatric History: Denies: Hx Panic Disorder - Surgical History Surgery Procedure, Year, and Place: bariatric- sleeve. bowel resection. 3 C- SECTIONS. THORACIC SURGERY ( 13 CYST REMOVED FROM LUNGS), APPENDECTOMY, CHOLECYSTECTOMY, HERNIA REPAIRS, BILAT PATELLAR RELEASES, MENISCUS REPAIR RIGHT. HYSTERECTOMY Infectious Disease History: No Infectious Disease History: Reports: Hx Shingles Denies: Traveled Outside the [place] in Last 30 Days - Family History Known Family History: Positive: Non-Contributory Family History: Appendectomy, cholecystectomy, gastric sleeve, thoracic surgery for lung tumors, total hysterectomy, partial bowel resection - Social History Alcohol Use: Occasionally Hx Substance Use: No Substance Use Type: Reports: None Substance Use Comment - Amount & Last Used: medical - occasionally Hx Tobacco Use: No Smoking Status (MU): Never Smoked Tobacco Review of Systems Positive: Fever. Negative: Chills Positive: Other - eye pain when moving left eye to left Positive: Other - jaw pain (hard to breath and swallow), tight throat. Negative : Dental Pain, Sore Throat Positive: Other - denies sputum coming out of mouth or nose . Negative: Cough Negative: Abdominal Pain, Vomiting, Nausea Negative: dysuria, hematuria Negative: Myalgia, Edema Negative: Rash Neurological: Other - denies dizziness All Other Systems Reviewed And Are Negative: Yes Physical Exam - Summary Physical Exam Summary: Constitutional: Well-developed, Well-nourished, Alert. (-) Distressed Skin: Warm, Dry HENT: tenderness over the maxillary and frontal sinuses and over TMJ, no drainable dental abscess, no trismus Eyes: Conjunctiva normal Neck: Musculoskeletal ROM normal neck. (-) JVD, (-) Stridor, (-) Tracheal deviation Cardio: Rhythm regular, rate normal, Heart sounds normal; Intact distal pulses; The pedal pulses are 2+ and symmetric. Radial pulses are 2+ and symmetric. (-) Murmur Pulmonary/Chest wall: Effort normal. (-) Respiratory distress, (-) Wheezes, (-) Rales Abd: Soft, (-) tenderness, (-) Distension, (-) Guarding, (-) Rebound Musculoskeletal: (-) Edema Lymph: (-) Cervical adenopathy Neuro: Alert, Oriented x3 Psych: Mood and affect Normal Triage Information Reviewed: Yes Vital Signs On Initial Exam: Initial Vitals Temp Pulse Resp BP Pulse Ox 98.2 F 94 16 140/85 99 03/03/19 14:21 03/03/19 14:21 03/03/19 14:21 03/03/19 14:21 03/03/19 14:21 Vital Signs Reviewed: Yes Procedures - Sedation Patient Received Moderate/Deep Sedation with Procedure: No Diagnostics - Vital Signs Vital Signs Temp Pulse Resp BP Pulse Ox 03/03/19 14:21 98.2 F 94 16 140/85 99 - Laboratory Result Diagrams: 03/03/19 16:23 03/03/19 16:23 Lab Statement: Any lab studies that have been ordered have been reviewed, and results considered in the medical decision making process. - CT Neck CT CT Interpretation Completed By: Radiologist Summary of CT Findings: Per radiologist,. 1. There is asymmetric prominence and increased enhancement of the left parotid. gland with mild surrounding inflammatory fat stranding, suspicious for acute. left parotiditis. 2. There is mild left level II cervical lymphadenopathy. ED physcian has reviewed this imaging report. EENT Course/Dx - Course Assessment/Plan: This patient is a 43 year old F presenting to [facility] with a chief complaint of jaw pain since 3 days ago. Symptoms aggravated by nothing. Symptoms alleviated by nothing. Patient reports pain on jaw on 3 days ago ( thought it was earache) but woke up this morning swollen and hurting finding it harder to breath and swallow. Pt reports left jaw line concentration of swollen , low grade fever yesterday, not so much sore but tight throat, hard to move left eye to the left due to pain. Denies teeth pain, sputum coming out of nose or mouth, chills, erythema of eyes, sore throat, CP, SOB, cough, abdominal pain , N/V, dysuria, hematuria, myalgia, edema, rash, or dizziness. Physical Exam Findings reveal no abnormalities except for tenderness over the maxillary and frontal sinuses and over TMJ, no drainable dental abscess, no trismus. Neck CT reveals 1. There is asymmetric prominence and increased enhancement of the left parotid. gland with mild surrounding inflammatory fat stranding, suspicious for acute. left parotiditis. 2. There is mild left level II cervical lymphadenopathy. ED physician has reviewed this radiology report and agrees. Test results with no significant abnormalities expect for APTT 38.1 H, BUN/ Creatinine Ratio 27.4 H, Urine Ascorbic Acid A. In the ED course the patient was given Iohexol Omnipaque 300 50 ml, Ketorolac Tromethamine Toradol Inj 30 mg. Patient will be discharged with dx parotitis and follow up from PCP and ENT. The patient is agreeable with this plan. - Diagnoses Provider Diagnoses: Parotitis Discharge ED - Sign-Out/Discharge Documenting (check all that apply): Patient Departure - discharge - Discharge Plan Condition: Stable Disposition: HOME Prescriptions: Ibuprofen TAB* [Motrin TAB* 400 MG] 400 mg PO Q6H PRN #30 tab PRN Reason: Pain - Severe predniSONE TAB* [Deltasone TAB*] 50 mg PO DAILY #4 tab traMADol TAB* [Ultram*] 50 mg PO Q6HR PRN #10 tab MDD 4 PRN Reason: Pain - Moderate Patient Education Materials: Sialoadenitis (ED) Referrals: Florencio Blackburn MD [Primary Care Provider] - 3 Days Jose Zee MD [Medical Doctor] - 3 Days Additional Instructions: Follow up with PCP within 2-3 days and ENT within 2-3 days. RETURN TO THE EMERGENCY DEPARTMENT FOR CHANGING OR WORSENING SYMPTOMS - Attestation Statements Document Initiated by Scribe: Yes Documenting Scribe: Kika Faust Provider For Whom Scribe is Documenting (Include Credential): Dr. Luis Enrique Chi MD Scribe Attestation: Kika Elder, scribed for Dr. Luis Enrique Chi MD on 03/03/19 at 1855. Status of Scribe Document: Ready
[2019-03-03 16:45] LABS: ABS Lymphocytes 1.4 10^3/ul (1.0-4.8); ABS Monocytes 0.6 10^3/ul (0-0.8); ABS Neutrophils 3.8 10^3/ul (1.5-7.7); Eosinophil % 0.1 %; Hematocrit 38 % (35-47); Hemoglobin 13.2 g/dL (12.0-16.0); Lymphocyte % 24.4 %; Mean Corpuscular HGB Conc 35 g/dL (31-36); Mean Corpuscular Hemoglobin 30 pg (27-31); Mean Corpuscular Volume 87 fL (80-97); Mean Platelet Volume 7.8 fL (7.4-10.4); Nucleated Red Blood Cells % 0.5; Platelet Count 176 10^3/uL (150-450); Red Cell Distribution Width 15 % (10-15); White Blood Count 5.9 10^3/uL (3.5-10.8)
[2019-03-03 17:00] LABS: Activated Partial Thrombo Time 38.1 seconds (26.0-38.0); INR 0.96 (0.82-1.09)
[2019-03-03 17:12] LABS: Albumin 4.2 g/dL (3.2-5.2); Albumin/Globulin Ratio 1.7 (1-3); BUN/Creatinine Ratio 27.4 (8-20); Calcium 9.2 mg/dL (8.6-10.3); EGFR African American 105.3 (>60); Globulin 2.5 g/dL (2-4); Potassium 3.9 mmol/L (3.5-5.0); Total Bilirubin 0.5 mg/dL (0.2-1.0); Total Protein 6.7 g/dL (6.4-8.9)
[2019-03-03] MEDS ORDERED: Iohexol 300* (CONTRAST) 10 ML SDV IV ONE (17:36)
[2019-03-03 18:04] LABS: Urine Appearance Clear; Urine Bilirubin Negative (Negative); Urine Blood Negative (Negative); Urine Color Yellow; Urine Glucose Negative (Negative); Urine Ketones Negative (Negative); Urine Nitrite Negative (Negative); Urine Protein Negative (Negative); Urine Specific Gravity 1.024 (1.010-1.030); Urine Urobilinogen Negative (Negative)
[2019-03-03] MEDS ORDERED: Ketorolac INJ* 30 MG/ML 1 ML VIAL IV PUSH ONE (18:10)
[2019-03-03 18:43] VITALS: BP 106/71
== END 2019-03-03 19:10 | disposition home or self-care (01) ==
LOC: ED 13:56
DX: K11.20 Sialoadenitis, unspecified (principal); R59.1 Generalized enlarged lymph nodes; Z88.0 Allergy status to penicillin; Z88.2 Allergy status to sulfonamides; Z88.8 Allergy status to other drugs, medicaments and biological substances; Z91.040 Latex allergy status; E21.0 Primary hyperparathyroidism; R51 Headache; F41.9 Anxiety disorder, unspecified; Z79.899 Other long term (current) drug therapy; Z79.891 Long term (current) use of opiate analgesic
CPT/HCPCS: 36415; 70491; 80053; 81003; 83605; 85025; 85610; 85730; 87040; 96374; 99283; J1885; J7512; Q9967

== ENCOUNTER 2019-04-19 08:02 | Emergency (ER) | payer MEDICARE, OTHER ==
--- OUTSIDE RECORDS SUMMARY | 2019-04-19 08:12 | XMS REPORT | Continuity of Care Document ---
:1975 External Reference #:[id number] Author Name Jolie Hoffman PA-C Address [address] [place] [address] Care Team Providers Name Role Phone Nick Ybarra M.D. Care Team Information Novelty Maker [phone] Problems Description No Information Available Social History Type Date Description Comments Sex Unknown Tobacco Use Start: Unknown Never Smoked Cigarettes Tobacco Use Start: Unknown Never Smoked Cigars Tobacco Use Start: Unknown Never Smoked A Pipe Smokeless Tobacco Never Used Smokeless Tobacco ETOH Use Currently occasionally consumes alcohol Tobacco Use Start: Unknown Patient has never smoked Smoking Status Reviewed: 03/04/19 Patient has never smoked Allergies, Adverse Reactions, Alerts Active Allergies Reaction Severity Comments Date Penicillin 03/04/2019 sulfa 03/04/2019 Cephalosporins 03/04/2019 Latex 03/04/2019 Wellbutrin 03/04/2019 Medications Active Medications SIG Qnty Indications Ordering Provider Date Clindamycin HCL take 1 pill 3 30caps K11.21 Darek Cardenas 03/04/2019 300mg times a day for MD Larry Capsules 10 days Ibuprofen Unknown 400mg Tablets Tramadol HCL Unknown 50mg Tablets Trazodone HCL Unknown 100mg Tablets Hydroxyzine Pamoate Unknown 50mg Capsules Prednisone Unknown 50mg Tablets Gabapentin Unknown 100mg Capsules Miralax twice daily Unknown 3350NF Packet Colace 1 by mouth twice Unknown 100mg Capsules a day Fiber Complete 3 gummies every Unknown Tablets day Epinephrine Unknown 0.15mg/0.15ML Solution Auto-Inject Immunizations Description No Information Available Vital Signs Date Vital Result Comment 03/04/2019 11:02am Weight 166.00 lb Weight 75.298 kg Height 65 inches 5'5" Height in cm's 165.1 cm BMI (Body Mass Index) 27.6 kg/m2 Results Description No Information Available Procedures Description No Information Available Medical Devices Description No Information Available Encounters Type Date Location Provider Dx Diagnosis Office Visit 03/04/2019 [facility],Sony Hoffman, K11.21 Acute sialoadenitis 10:45a 03/19/07 [facility] Assessments Date Code Description Provider 03/04/2019 K11.21 Acute sialoadenitis Jolie Hoffman PA-C Plan of Treatment 03/04/2019 - DAVE Watts-CK11.21 Acute sialoadenitisNew Medication: Clindamycin HCL 300 mg - take 1 pill 3 times a day for 10 days Functional Status Description No Information Available Mental Status Description No Information Available Referrals Description No Information Available
--- OUTSIDE RECORDS SUMMARY | 2019-04-19 08:12 | XMS REPORT | Continuity of Care Document ---
:1975 External Reference #:[id number] Author Name Florencio Blackburn MD (transmitted by agent of provider Ximena Caldwell) Address [address] [place] [address] Care Team Providers Name Role Phone Florencio Blackburn MD - Student in an Care Team Information Agency Operator Organized Health Care Education/Training Program Problems Active Problems Provider Date Localized, primary osteoarthritis Gerson Almaguer MD Onset: 11/12/2018 Knee joint effusion Yadira Moise M.D. Onset: 12/23/2018 Social History Type Date Description Comments Sex Unknown ETOH Use Occasionally consumes alcohol Tobacco Use Start: Unknown Patient has never smoked Smoking Status Reviewed: 03/04/19 Patient has never smoked Exercise Type/Frequency Does not exercise Allergies, Adverse Reactions, Alerts Active Allergies Reaction Severity Comments Date Penicillin 11/12/2018 Sulfa Antibiotics 11/12/2018 Latex 11/12/2018 Adhesive 11/12/2018 Wellbutrin Moderate aggitation/hostility 03/04/2019 Medications Active Medications SIG Qnty Indications Ordering Provider Date Hydroxyzine Pamoate take 4 times a Unknown 50mg day Capsules Trazodone HCL take 2 tabs daily Unknown 100mg Tablets Gabapentin take 3 times a Unknown 100mg Capsules day Multivital Unknown Colace 2-In-1 Unknown Fiber Unknown Epipen 2-Prince Unknown Probiotic Unknown Prednisone one tablet daily Unknown 50mg Tablets for 4 days Clindamycin HCL 1 by mouth three Unknown 300mg times a day Capsules Immunizations CPT Code Status Date Vaccine Reaction Lot # [id number] Given 03/04/2019 Tdap - pt. tolerated well. dg H54EX Tetanus/Diptheria/Acellular Pertussis Vital Signs Date Vital Result Comment 03/04/2019 3:19pm Height 65 inches 5'5" Weight 165.00 lb Heart Rate 80 /min BP Systolic Sitting 123 mmHg BP Diastolic Sitting 86 mmHg Body Temperature 95.8 F Pain Level 6 left jaw O2 % BldC Oximetry 97 % BMI (Body Mass Index) 27.5 kg/m2 12/23/2018 8:32am Height 65 inches 5'5" Weight 165.00 lb Heart Rate 84 /min BP Systolic 124 mmHg BP Diastolic 82 mmHg Body Temperature 96.6 F Pain Level 6 BMI (Body Mass Index) 27.5 kg/m2 Results Test Acquired Date Facility Test Result H/L Range Note CBC Auto 03/03/2019 [facility] White Blood 5.9 10^3/uL Normal 3.5-10.[address] [place] [address] [phone] Red Blood Count 4.40 10^6/uL Normal 3.70-4.87 Hemoglobin 13.2 g/dL Normal 12.0-16.0 Hematocrit 38 % Normal 35-47 Mean Corpuscular Volume 87 fL Normal 80-97 Mean Corpuscular Hemoglobin 30 pg Normal 27-31 Mean Corpuscular HGB Conc 35 g/dL Normal 31-36 Red Cell Distribution Width 15 % Normal 10-15 Platelet Count 176 10^3/uL Normal 150-450 Mean Platelet Volume 7.8 fL Normal 7.4-10.4 Abs Neutrophils 3.8 10^3/uL Normal 1.5-7.7 Abs Lymphocytes 1.4 10^3/uL Normal 1.0-4.8 Abs Monocytes 0.6 10^3/uL Normal 0-0.8 Abs Eosinophils 0.0 10^3/uL Normal 0-0.6 Abs Basophils 0.0 10^3/uL Normal 0-0.2 Abs Nucleated RBC 0.0 10^3/uL Granulocyte % 64.9 % Lymphocyte % 24.4 % Monocyte % 10.6 % Eosinophil % 0.1 % Basophil % 0.0 % Nucleated Red Blood Cells % 0.5 Inr/Protime 03/03/2019 [facility] Inr 0.96 Normal 0.82-1.[address] [place] [address] [phone] Laboratory test 03/03/2019 [facility] Partial 38.1 High 26.0- 38.0 finding [address] [facility] [place] [address] Time PTT [phone] Comp Metabolic 03/03/2019 [facility] Sodium 140 mmol/L Normal 135-145 Panel [address] [place] [address] [phone] Potassium 3.9 mmol/L Normal 3.5-5.0 Chloride 105 mmol/L Normal 101-111 Co2 Carbon Dioxide 30 mmol/L Normal 22-32 Anion Gap 5 mmol/L Normal 2-11 Glucose 77 mg/dL Normal 70-100 Blood Urea Nitrogen 20 mg/dL Normal 6-24 Creatinine 0.73 mg/dL Normal 0.51-0.95 BUN/Creatinine Ratio 27.4 High 8-20 Calcium 9.2 mg/dL Normal 8.6-10.3 Total Protein 6.7 g/dL Normal 6.4-8.9 Albumin 4.2 g/dL Normal 3.2-5.2 Globulin 2.5 g/dL Normal 2-4 Albumin/Globulin Ratio 1.7 Normal 1-3 Total Bilirubin 0.50 mg/dL Normal 0.2-1.0 Alkaline Phosphatase 73 U/L Normal 34-104 Alt 12 U/L Normal 7-52 Ast 16 U/L Normal 13-39 Egfr Non- 87.0 >60 Egfr 105.3 >60 2 Laboratory test 03/03/2019 [facility] Lactic Acid 0.6 mmol/L Normal 0.5-2.0 3 finding [address] [place] [address] [phone] Urinalysis 03/03/2019 [facility] Urine Color Yellow Profile [address] [place] [address] [phone] Urine Appearance Clear Urine Specific [place] 1.024 Normal 1.010-1.030 Urine pH 5.0 Normal 5-9 Urine Urobilinogen Negative Negative Urine Ketones Negative Negative Urine Protein Negative Negative Urine Leukocytes Negative Negative Urine Blood Negative Negative * * Abnormal Negative 4 Urine Nitrite Negative Negative Urine Bilirubin Negative Negative Urine Glucose Negative Negative 1 Standard intensity warfarin therapeutic range: 2.0-3.0 High intensity warfarin therapeutic range: 2.5-3.5 2 Because ethnic data is not always readily available, this report includes an eGFR for both -Americans and non- Americans. The National Kidney Disease Education Program (NKDEP) does not endorse the use of the MDRD equation for patients that are not between the ages of 18 and 70, are , have extremes of body size, muscle mass, or nutritional status, or are non- or non-. According to the National Kidney Foundation, irrespective of diagnosis, the stage of the disease is based on the level of kidney function: Stage Description GFR(mL/min/1.73 m(2)) 1 Kidney damage with normal or decreased GFR 90 2 Kidney damage with mild decrease in GFR 60-89 3 Moderate decrease in GFR 30-59 4 Severe decrease in GFR 15-29 5 Kidney failure <15 (or dialysis) 3 [facility] Severe Sepsis and Septic Shock Management Bundle Measure requires all lactic acids initially measuring >2.0 mmol/L be repeated. 4 *Ascorbic acid is present which may interfere with detection of blood. Procedures Description No Information Available Medical Devices Description No Information Available Encounters Type Date Location Provider Dx Diagnosis Office Visit 12/23/2018 [facility] Yadira Moise, M25.562 [place] 8[place] M25.561 Pain in right knee M25.462 Effusion, left knee M25.461 Effusion, right knee M17.0 Bilateral primary osteoarthritis of knee M23.303 Oth meniscus derangements, unsp medial meniscus, right knee Office Visit 12/03/2018 Tiffanie Almaguer, M17.11 Unilateral primary 2:15p [facility] right knee M23.303 Oth meniscus derangements, unsp medial meniscus, right knee Office Visit 11/12/2018 Tiffanie Almaguer M17.11 Unilateral primary 2:30p [facility] right knee M17.12 Unilateral primary osteoarthritis, left knee M17.0 Bilateral primary osteoarthritis of knee Assessments Date Code Description Provider 03/04/2019 F33.0 Major depressive disorder, recurrent, mild Florencio Blackburn MD 03/04/2019 M17.9 Osteoarthritis of knee, unspecified Florencio Blackburn MD 03/04/2019 K57.90 Diverticulosis of intestine, part unspecified, Florencio Blackburn MD without perforation or abscess without bleeding 03/04/2019 Z00.01 Encounter for general adult medical Florencio Blackburn MD examination with abnormal findings 12/23/2018 M25.562 Pain in left knee Yadira Moise M.D. 12/23/2018 M25.561 Pain in right knee Yadira Moise M.D. 12/23/2018 M25.462 Effusion, left knee Yadira Moise M.D. 12/23/2018 M25.461 Effusion, right knee Yadira Moise M.D. 12/23/2018 M17.0 Bilateral primary osteoarthritis of knee Yadira Moise M.D. 12/23/2018 M23.303 Other meniscus derangements, unspecified Yadira Moise M.D. medial meniscus, right knee 12/03/2018 M17.11 Unilateral primary osteoarthritis, right knee Gerson Almaguer MD 12/03/2018 M23.303 Other meniscus derangements, unspecified Gerson Almaguer MD medial meniscus, right knee 11/12/2018 M17.11 Unilateral primary osteoarthritis, right knee Gerson Almaguer MD 11/12/2018 M17.12 Unilateral primary osteoarthritis, left knee Gerson Almaguer MD 11/12/2018 M17.0 Bilateral primary osteoarthritis of knee Gerson Almaguer MD Plan of Treatment 03/04/2019 - Florencio Blackburn MDF33.0 Major depressive disorder, recurrent, mildComments:Please follow with [facility].If you feel like you need any help then please giveus a call or go to ED.Referral:[facility], Mental Health/FihyipcgvC04.9 Osteoarthritis of knee, unspecifiedComments:Please follow up with Dr. Moise for Synvisc injection.K57.90 Diverticulosis of intestine, part unspecified, without perforation or abscess without bleedingComments:you have been referred to [facility] [place].Referral:Gilda Carmichael M.D., Single Specialty ZwznbX18.01 Encounter for general adult medical examination with abnormal findingsFollow up:YING previous records. Follow up 6 month or sooner if needed.Immunizations/Injections:Tdap - Tetanus/Diptheria/Acellular Pertussis Functional Status Description No Information Available Mental Status Description No Information Available Referrals Refer to Reason for Referral Status Appt Date [facility] Patient had PHQ9 of 11. She needs Created psychotherapy and medication and needs psychiatrist. [address] [place] [address] [phone] Gilda Carmichael M.D. Has history of dicerticulosis with Created colectomy. Had sleeve surgery and since then has multiple episode of pancreatitis. She is from [place] and had GI doctor there but she wants GI doctor here in [place]. [address] [place] [address] [phone]
[2019-04-19 08:14] VITALS: BP 122/80
--- NOTE | 2019-04-19 08:57 | UC ---
Ear Complaint HPI - HPI Summary HPI Summary: The patient is a 43-year-old female with left ear pain and left lateral neck pain. She has been treated twice recently for left sialadenitis. She denies any fever. Her left ear hurts when she touches it. She has had no nausea vomiting or diarrhea. She denies any decreased hearing. She has no URI symptoms. - History of Current Complaint Chief Complaint: UCGeneralIllness Stated Complaint: JAW / EAR / FACE PAIN Time Seen by Provider: 04/19/19 08:33 Hx Obtained From: Patient Hx Last Menstrual Period: hyster Onset/Duration: Gradual Onset, Lasting Days Severity Initially: Mild Severity Currently: Moderate Pain Intensity: 6 Pain Scale Used: 0-10 Numeric Ear Image: 1 - pain here - Allergies/Home Medications Allergies/Adverse Reactions: Allergies Allergy/AdvReac Type Severity Reaction Status Date / Time Penicillins Allergy Intermediate Hives Verified 04/19/19 08:14 Sulfa (Sulfonamide Allergy Intermediate Swelling Verified 04/19/19 08:14 Antibiotics) bupropion [From Wellbutrin] Allergy AGRESSIVELY Verified 04/19/19 08:14 VIOLENT BEHAVIOR Latex, Natural Rubber AdvReac Mild Rash Verified 04/19/19 08:14 PMH/Surg Hx/FS Hx/Imm Hx Previously Healthy: Yes - Surgical History Surgical History: Yes Surgery Procedure, Year, and Place: bariatric- sleeve. bowel resection. 3 C- SECTIONS. THORACIC SURGERY ( 13 CYST REMOVED FROM LUNGS), APPENDECTOMY, CHOLECYSTECTOMY, HERNIA REPAIRS, BILAT PATELLAR RELEASES, MENISCUS REPAIR RIGHT. HYSTERECTOMY - Family History Known Family History: Positive: Non-Contributory Family History: Appendectomy, cholecystectomy, gastric sleeve, thoracic surgery for lung tumors, total hysterectomy, partial bowel resection - Social History Alcohol Use: Occasionally Substance Use Type: None Substance Use Comment - Amount & Last Used: medical - occasionally Smoking Status (MU): Never Smoked Tobacco Review of Systems All Other Systems Reviewed And Are Negative: Yes Constitutional: Positive: Negative Skin: Positive: Negative Eyes: Positive: Negative ENT: Positive: Ear Ache Respiratory: Positive: Negative Cardiovascular: Positive: Negative Gastrointestinal: Positive: Negative Genitourinary: Positive: Negative Motor: Positive: Negative Neurovascular: Positive: Negative Musculoskeletal: Positive: Negative Neurological: Positive: Negative Psychological: Positive: Negative Physical Exam Triage Information Reviewed: Yes Appearance: No Pain Distress, Well-Nourished Vital Signs: Initial Vital Signs Temp 97.8 F 04/19/19 08:04 Pulse 79 04/19/19 08:04 Resp 16 04/19/19 08:04 BP 122/80 04/19/19 08:04 Pulse Ox 100 04/19/19 08:04 Vital Signs Reviewed: Yes Eyes: Positive: Conjunctiva Clear ENT: Positive: Hearing grossly normal. Negative: Nasal congestion, Nasal drainage, Tonsillar swelling, Tonsillar exudate, Muffled voice, Hoarse voice, Sinus tenderness, Uvula midline Neck: Positive: Supple, Nontender, Enlarged Nodes @ - left posterior and ant adenopathy Respiratory: Positive: Lungs clear, Normal breath sounds, No respiratory distress Cardiovascular: Positive: RRR, No Murmur Musculoskeletal: Positive: ROM Intact, No Edema Neurological: Positive: Alert Psychological Exam: Normal Skin Exam: Normal Ear Complaint Course/Dx - Differential Dx/Diagnosis Provider Diagnosis: Left cervical lymphadenopathy Discharge ED - Sign-Out/Discharge Documenting (check all that apply): Patient Departure All imaging exams completed and their final reports reviewed: No Studies - Discharge Plan Condition: Stable Disposition: HOME Prescriptions: DOXYcycline CAP(*) [DOXYcycline 100MG CAP(*)] 100 mg PO BID #14 cap Patient Education Materials: Lymphadenopathy (ED) Referrals: Florencio Blackburn MD [Primary Care Provider] - Additional Instructions: heat tylenol given your recent bouts of sialadenitis I will start an antibiotic I suggest you see your ENT mid week - Billing Disposition and Condition Condition: STABLE Disposition: Home
== END 2019-04-19 09:06 | disposition home or self-care (01) ==
LOC: UCEAST 08:02
DX: R59.0 Localized enlarged lymph nodes (principal); H92.02 Otalgia, left ear; M54.2 Cervicalgia; Z88.0 Allergy status to penicillin; Z88.2 Allergy status to sulfonamides; Z88.8 Allergy status to other drugs, medicaments and biological substances; Z91.040 Latex allergy status
CPT/HCPCS: 99212; G0463

== ENCOUNTER 2019-06-05 10:44 | Emergency (ER) | payer MEDICARE, OTHER ==
--- OUTSIDE RECORDS SUMMARY | 2019-06-05 11:36 | XMS REPORT | Continuity of Care Document ---
:1975 External Reference #:[id number] Author Name [facility] (transmitted by agent of provider Cong Guerrero) Address [address] [facility] [place] [address] Care Team Providers Name Role Phone Florencio Blackburn MD - Student in an Care Team Information Floor Attendant [phone] Organized Health Care Education/Training Program Problems Active Problems Provider Date Localized, primary osteoarthritis Gerson Almaguer MD Onset: 11/12/2018 Knee joint effusion Yadira Moise M.D. Onset: 12/23/2018 Social History Type Date Description Comments Sex Unknown ETOH Use Occasionally consumes alcohol Tobacco Use Start: Unknown Patient has never smoked Smoking Status Reviewed: 05/26/19 Patient has never smoked Exercise Type/Frequency Does not exercise Allergies, Adverse Reactions, Alerts Active Allergies Reaction Severity Comments Date Penicillin 11/12/2018 Sulfa Antibiotics 11/12/2018 Latex 11/12/2018 Adhesive 11/12/2018 Wellbutrin Moderate aggitation/hostility 03/04/2019 Medications Active Medications SIG Qnty Indications Ordering Provider Date Amoxicillin take one tabs 20tabs Nick Ybarra MD 05/30/2019 500mg Tablets twice times a day Azithromycin take two tabs on 6tabs J06.9 Tahira Tang, 05/26/2019 250mg day one, and DO Tablets then one tab for four days Hydroxyzine Pamoate take 4 times a Unknown 50mg day Capsules Trazodone HCL take 2 tabs Unknown 100mg daily Tablets Gabapentin take 3 times a Unknown 100mg Capsules day Multivital Unknown Colace 2-In-1 Unknown Fiber Unknown Epipen 2-Prince Unknown Probiotic Unknown Xanax 1-2 pill as 30tabs Unknown 0.5mg Tablets needed daily History Medications Ciprofloxacin HCL Take 1 Tablet By 14tabs K11.20 Nick Ybarra MD 03/10/2019 - 500mg Mouth Twice Daily 05/26/2019 Tablets Oxycodone-Acetaminophe take 1 tablet 14tabs G50.1 Nick Ybarra MD 2018 - n nightly for 05/26/2019 5-325mg Tablets moderate pain and 2 tabs nightly for severe pain Immunizations CPT Code Status Date Vaccine Reaction Lot # [id number] Given 03/04/2019 Tdap - pt. tolerated well. dg [id number] Tetanus/Diptheria/Acellular Pertussis Vital Signs Date Vital Result Comment 05/26/2019 9:50am Height 65 inches 5'5" Weight 170.00 lb Heart Rate 77 /min BP Systolic Sitting 124 mmHg BP Diastolic Sitting 72 mmHg Body Temperature 96.4 F O2 % BldC Oximetry 98 % BMI (Body Mass Index) 28.3 kg/m2 03/10/2019 11:06am Height 65 inches 5'5" Weight 162.12 lb Heart Rate 83 /min BP Systolic 127 mmHg BP Diastolic 78 mmHg Body Temperature 96.0 F O2 % BldC Oximetry 97 % BMI (Body Mass Index) 27.0 kg/m2 Results Test Acquired Date Facility Test Result H/L Range Note Influenza A & B 05/26/2019 [facility] Flu AB (SEE NOTE) [address] [place] [address] [phone] Influenza A Molecular Negative Negative Influenza B Molecular Negative Negative 2 Laboratory test 05/26/2019 [facility] Miscellaneous See Comment [address] [place] [address] [phone] CBC Auto Diff 03/03/2019 [facility] White Blood Count 5.9 10^3/ uL Normal 3.5- [address] 10.8 [place] [address] [phone] Red Blood Count 4.40 10^6/uL Normal 3.70-4.87 [...] Red Blood Cells % 0.5 Inr/Protime 03/03/2019 [facility] Inr 0.96 Normal 0.82-1.[address] [place] [address] [phone] Laboratory test 03/03/2019 [facility] Partial 38.1 High 26.0- 38.[address] [address] Time PTT [phone] Comp Metabolic 03/03/2019 [facility] Sodium 140 mmol/L Normal 135-[address] [place] [address] [phone] Potassium 3.9 mmol/L Normal 3.5-5.0 Chloride 105 [...] Egfr Non- 87.0 >60 Egfr 105.3 >60 5 Laboratory test 03/03/2019 [facility] Lactic Acid 0.6 mmol/L Normal 0.5-2.0 [address] [place] [address] [phone] Urinalysis 03/03/2019 [facility] Urine Color Yellow Profile [address] [place] [address] [phone] Urine Appearance Clear Urine Specific [place] 1.024 Normal 1.010-1.030 Urine pH 5.0 Normal 5-9 Urine Urobilinogen Negative Negative Urine Ketones Negative Negative Urine Protein Negative Negative Urine Leukocytes Negative Negative Urine Blood Negative Negative * * Abnormal Negative 7 Urine Nitrite Negative Negative Urine Bilirubin Negative Negative Urine Glucose Negative Negative Laboratory test 03/03/2019 [facility] Blood Culture SEE RESULT [address] [place] [address] [phone] 1 Suboptimal collection technique may reduce sensitivity of test. Refer to the [facility] Test Catalog for collection information: [email or web address] As with all diagnostic procedures, the laboratory results obtained should be used in conjunction with other clinical information available to the physician, including confirmation by another method, as applicable. 2 Real Estate Services Administrator: [id number] 3 Test Result Flag Unit RefValue Respiratory Pathogen Panel, PCR, INDUSTRIAL PHOTOGRAPHER Adenovirus TNP Respiratory Pathogen Panel, PCR, INDUSTRIAL PHOTOGRAPHER was cancelled on 05/27/2019 at 12:49; Lab did not receive appropriate collection container for this test. Interpretation TNP Respiratory Pathogen Panel, PCR, INDUSTRIAL PHOTOGRAPHER was cancelled on 05/27/2019 at 12:49; Lab did not receive appropriate collection container for this test. Test Performed by: [address] [address] All Round Logger: Fazal Lucero M.D. Ph.D.; CLIA# [id number] 4 Standard intensity warfarin therapeutic range: 2.0-3.0 High intensity warfarin therapeutic range: 2.5-3.5 5 Because ethnic data is not always readily [...] 15-29 5 Kidney failure <15 (or dialysis) 6 [facility] Severe Sepsis and Septic Shock Management Bundle Measure requires all lactic acids initially measuring >2.0 mmol/L be repeated. 7 *Ascorbic acid is present which may interfere with detection of blood. 8 SEE RESULT BELOW Name: GM BASURTO : [address]: Luis Enrique Chi MD Acct: [id number] Unit: [id number] AGE: 43 Location: ED Re03/03/19 SEX: F Status: DEP ER SPEC: [id number] JUDY: 03/03/19-162 [facility] DR: Luis Enrique Chi MD REQ: [id number] RECD: 03/03/19 STATUS: MARGARITA BROWNING DR: Florencio Blackburn MD _ SOURCE: BLOOD,VENO SPDESC: ORDERED: Blood Cult Procedure Result Reported Site Aerobic Culture Bottle Final 03/08/19- 1636 ML No Growth Day 5 Anaerobic Culture Bottle Final 03/08/19- 1636 ML No Growth Day 5 * ML - Main Lab . END OF REPORT DEPARTMENT OF PATHOLOGY, [address] [place] [address] Davy Luna M.D. Director [facility] # [id number] Procedures Description No Information Available Medical Devices Description No Information Available Encounters Type Date Location Provider Dx Diagnosis Office Visit 05/26/2019 [facility] Internal Tahira Tang, J06.9 Acute upper 10:00a Medicine - Suite DO respiratory R infection, unspecified Office Visit 03/10/2019 [facility] Internal Nick Ybarra MD K11.20 Sialoadenitis, 11:00a Medicine - Suite unspecified R G47.00 Insomnia, unspecified G50.1 Atypical facial pain Office Visit 03/04/2019 3:00p [facility] Internal Florencio F33.0 Major depressive Medicine - Suite MD Bere disorder, R recurrent, mild M17.9 Osteoarthritis of knee, unspecified K57.90 Dvrtclos of intest, part unsp, w/o perf or abscess w/o bleed Z00.01 Encounter for general adult medical exam w abnormal findings Z23 Encounter for immunization Office Visit 12/23/2018 8:00a [facility] Yadira Moise, M25.562 Pain in left at [place] M.D. knee M25.561 Pain in right knee M25.462 Effusion, left knee M25.461 Effusion, right knee M17.0 Bilateral primary osteoarthritis of knee M23.303 Oth meniscus derangements, unsp medial meniscus, right knee Assessments Date Code Description Provider 05/26/2019 J06.9 Acute upper respiratory infection, unspecified Tahira Tang, 03/10/2019 K11.20 Sialoadenitis, unspecified Nick Ybarra MD 03/10/2019 G47.00 Insomnia, unspecified Nick Ybarra MD 03/10/2019 G50.1 Atypical facial pain Nick Ybarra MD 03/04/2019 F33.0 Major depressive disorder, recurrent, mild Florencio Blackburn MD 03/04/2019 M17.9 Osteoarthritis of knee, unspecified Florencio Blackburn MD 03/04/2019 K57.90 Diverticulosis of intestine, part unspecified, Florencio Blackburn MD without perforation or abscess without bleeding 03/04/2019 Z00.01 Encounter for general adult medical Florencio Blackburn MD examination with abnormal findings 03/04/2019 Z23 Encounter for immunization Florencio Blackburn MD 12/23/2018 M25.562 Pain in left knee Yadira Moise M.D. 12/23/2018 M25.561 Pain in right knee Yadira oMise M.D. 12/23/2018 M25.462 Effusion, left knee Yadira Moise M.D. 12/23/2018 M25.461 Effusion, right knee Yadira Moise M.D. 12/23/2018 M17.0 Bilateral primary osteoarthritis of knee Yadira Moise M.D. 12/23/2018 M23.303 Other meniscus derangements, unspecified Yadira Moise M.D. medial meniscus, right knee Plan of Treatment 05/26/2019 - Tahira Tang, DOJ06.9 Acute upper respiratory infection, unspecifiedNew Medication:Azithromycin 250 mg - take two tabs on day one, and then one tab for four days Functional Status Description No Information Available Mental Status Description No Information Available Referrals Refer to Reason for Referral Status Appt Date [facility] Patient had PHQ9 of 11. She needs Created psychotherapy and medication and needs psychiatrist. [address] [place] [address] [phone] Gilda Carmichael M.D. Has history of dicerticulosis Received Partial 05/13/2019 with colectomy. Had sleeve surgery and since then has multiple episode of pancreatitis. She is from [place] and had GI doctor there but she wants GI doctor here in [place]. [address] [place] [address] [phone]
--- OUTSIDE RECORDS SUMMARY | 2019-06-05 11:37 | XMS REPORT | Continuity of Care Document ---
:1975 External Reference #:[id number] Author Name Tahira Tang DO (transmitted by agent of provider Kamila Magaña) Address [address] [facility] [place] [address] Care Team Providers Name Role Phone Florencio Blackburn MD - Student in an Care Team Information Cloth Mender Organized Health Care Education/Training Program Problems Active [...] Medications SIG Qnty Indications Ordering Provider Date Azithromycin take two tabs on 6tabs J06.9 [...] Code Status Date Vaccine Reaction Lot # [id number] Given 03/04/2019 Tdap - pt. tolerated well. [...] Range Note Influenza A & B 05/26/2019 [facility] Flu AB (SEE NOTE) [address] [place] [address] [phone] Influenza A Molecular Negative Negative Influenza B Molecular Negative Negative 2 CBC Auto 03/03/2019 [facility] White Blood 5.9 10^3/uL Normal 3.5-10.[address] [place] [address] [phone] Red Blood Count 4.40 10^6/uL Normal 3.70-4.87 [...] Red Blood Cells % 0.5 Inr/Protime 03/03/2019 [facility] Inr 0.96 Normal 0.82-1.[address] [place] [address] [phone] Laboratory test 03/03/2019 [facility] Partial 38.1 High 26.0- 38.[address] [place] [address] Time PTT [phone] Comp Metabolic 03/03/2019 [facility] Sodium 140 mmol/L Normal 135-[address] [place] [address] [phone] Potassium 3.9 mmol/L Normal 3.5-5.0 Chloride 105 [...] Egfr Non- 87.0 >60 Egfr 105.3 >60 4 Laboratory test 03/03/2019 [facility] Lactic Acid 0.6 mmol/L Normal 0.5-2.0 [address] [place] [address] [phone] Urinalysis 03/03/2019 [facility] Urine Color Yellow Profile [address] [place] [address] [phone] Urine Appearance Clear Urine Specific [place] 1.024 Normal 1.010-1.030 Urine pH 5.0 Normal 5-9 Urine Urobilinogen Negative Negative Urine Ketones Negative Negative Urine Protein Negative Negative Urine Leukocytes Negative Negative Urine Blood Negative Negative * * Abnormal Negative 6 Urine Nitrite Negative Negative Urine Bilirubin Negative Negative Urine Glucose Negative Negative Laboratory test 03/03/2019 [facility] Blood Culture SEE RESULT [address] [place] [address] [phone] 1 Suboptimal collection technique may reduce sensitivity of test. Refer to the [facility] Test Catalog for collection information: [email or web address] As with all diagnostic procedures, the laboratory results obtained should be used in conjunction with other clinical information available to the physician, including confirmation by another method, as applicable. 2 Wheel Presser: [id number] 3 Standard intensity warfarin therapeutic range: 2.0-3.0 High intensity warfarin therapeutic range: 2.5-3.5 4 Because ethnic data is not always readily [...] 15-29 5 Kidney failure <15 (or dialysis) 5 [facility] Severe Sepsis and Septic Shock Management Bundle Measure requires all lactic acids initially measuring >2.0 mmol/L be repeated. 6 *Ascorbic acid is present which may interfere with detection of blood. 7 SEE RESULT BELOW Name: GM BASURTO : [address]: Luis Enrique Chi MD Acct: [id number] Unit: [id number] AGE: 43 Location: ED Re03/03/19 SEX: F Status: DEP ER SPEC: [id number] JUYD: 03/03/[address]: Luis Enrique Chi MD REQ: [id number] RECD: 03/03/19 STATUS: COMP OTHR DR: Florencio Blackburn MD _ SOURCE: BLOOD,VENO SPDESC: ORDERED: Blood Cult Procedure Result Reported Site Aerobic Culture Bottle Final 03/08/19- 1636 ML No Growth Day 5 Anaerobic Culture Bottle Final 03/08/19- 1636 ML No Growth Day 5 * - Main Lab . END OF REPORT DEPARTMENT OF PATHOLOGY, [address] [place] [address] Davy Luna M.D. Director [facility] # [id number] Procedures Description No Information Available Medical Devices Description No Information Available Encounters Type Date Location Provider Dx Diagnosis Office Visit 05/26/2019 [facility] Internal Tahira Tang, J06.9 Acute upper 10:00a Medicine - Suite DO respiratory R infection, unspecified Office Visit 03/04/2019 [facility] Internal Florencio Blackburn, F33.0 Major depressive 3:00p Medicine - Suite MD disorder, R recurrent, mild M17.9 Osteoarthritis of knee, unspecified K57.90 Dvrtclos of intest, part unsp, w/o perf or abscess w/o bleed Z00.01 Encounter for general adult medical exam w abnormal findings Z23 Encounter for immunization Office Visit 12/23/2018 8:00a [facility] Yadira Moise, M25.562 Pain in left at [facility].D. knee M25.561 Pain in right knee M25.462 Effusion, left knee M25.461 Effusion, right knee M17.0 Bilateral primary osteoarthritis of knee M23.303 Oth meniscus derangements, unsp medial meniscus, right knee Office Visit 12/03/2018 [facility], M17.11 Unilateral primary 2:15p Orthopedics at osteoarthritis [place] right knee M23.303 Oth meniscus derangements, unsp medial meniscus, right knee Assessments Date Code Description Provider 05/26/2019 J06.9 Acute upper respiratory infection, unspecified Tahira Tang DO 03/10/2019 K11.20 Sialoadenitis, unspecified Nick Ybarra MD 03/10/2019 G47.00 Insomnia, unspecified Nick Ybarra MD 03/10/2019 G50.1 Atypical facial pain Nick Ybarra MD 03/04/2019 F33.0 Major depressive disorder, recurrent, mild Sristee Niraula , MD 03/04/2019 M17.9 Osteoarthritis of knee, unspecified [...] Gerson Almaguer MD medial meniscus, right knee Plan of Treatment 05/26/2019 - Tahira Tang, DOJ06.9 Acute upper respiratory infection, unspecifiedNew Medication:Azithromycin 250 mg - take two tabs on day one, and then one tab for four days Functional Status Description No Information Available Mental Status Description No Information Available Referrals Refer to Reason for Referral Status Appt Date [facility] Patient had PHQ9 of 11. She needs Created psychotherapy and medication and needs psychiatrist. [address] [place] [address] [phone] Gilda Carmichael M.D. Has history of dicerticulosis Received Partial 05/13/2019 with colectomy. Had sleeve surgery and since then has multiple episode of pancreatitis. She is from [place] and had GI doctor there but she wants GI doctor here in [place]. [address] [place] [address] [phone]
--- OUTSIDE RECORDS SUMMARY | 2019-06-05 11:37 | XMS REPORT | Continuity of Care Document ---
:1975 External Reference #:[id number] Author Name Nick Ybarra MD (transmitted by agent of provider Tanna Arnold) Address [address] [facility] [place] [address] Care Team Providers Name Role Phone Florencio Blackburn MD - Student in an Care Team Information Strategic Planner Organized Health Care Education/Training Program Problems Active [...] Code Status Date Vaccine Reaction Lot # [id number] Given 03/04/2019 Tdap - pt. tolerated well. [...] Range Note Influenza A & B 05/26/2019 [facility] Flu AB (SEE NOTE) [address] [place] [address] [phone] Influenza A Molecular Negative Negative Influenza B Molecular Negative Negative 2 Laboratory test 05/26/2019 [facility] Miscellaneous See Comment [address] [place] [address] [phone] CBC Auto Diff 03/03/2019 [facility] White Blood Count 5.9 10^3/ uL Normal 3.5- [address] 10.8 [place] [address] [phone] Red Blood Count 4.40 10^6/uL Normal 3.70-4.87 [...] Red Blood Cells % 0.5 Inr/Protime 03/03/2019 [facility] Inr 0.96 Normal 0.82-1.[address] [place] [address] [phone] Laboratory test 03/03/2019 [facility] Partial 38.1 High 26.0- 38.[address] [place] [address] Time PTT [phone] Comp Metabolic 03/03/2019 [facility] Sodium 140 mmol/L Normal 135-[address] [place] [address] [phone] Potassium 3.9 mmol/L Normal 3.5-5.0 Chloride 105 [...] Egfr 105.3 >60 5 Laboratory test 03/03/2019 [facility] Lactic Acid 0.6 mmol/L Normal 0.5-2.0 [address] [place] [address] [phone] Urinalysis 03/03/2019 [facility] Urine Color Yellow Profile [address] [place] [address] [phone] Urine Appearance Clear Urine Specific [place] 1.024 Normal 1.010-1.030 Urine pH 5.0 Normal 5-9 Urine Urobilinogen Negative Negative Urine Ketones Negative Negative Urine Protein Negative Negative Urine Leukocytes Negative Negative Urine Blood Negative Negative * * Abnormal Negative 7 Urine Nitrite Negative Negative Urine Bilirubin Negative Negative Urine Glucose Negative Negative Laboratory test 03/03/2019 [facility] Blood Culture SEE RESULT [address] [place] [address] [phone] 1 Suboptimal collection technique may reduce sensitivity of test. Refer to the [facility] Test Catalog for collection information: [email or web address] As with all diagnostic procedures, the laboratory results obtained should be used in conjunction with other clinical information available to the physician, including confirmation by another method, as applicable. 2 Design Printer Balloon: [id number] 3 Test Result Flag Unit RefValue Respiratory Pathogen Panel, PCR, LEADERSHIP RECRUITER Adenovirus TNP Respiratory Pathogen Panel, PCR, LEADERSHIP RECRUITER was cancelled on 05/27/2019 at 12:49; Lab did not receive appropriate collection container for this test. Interpretation TNP Respiratory Pathogen Panel, PCR, LEADERSHIP RECRUITER was cancelled on 05/27/2019 at 12:49; Lab did not receive appropriate collection container for this test. Test Performed by: [address] [address] Stock Manager: Fazal Lucero M.D. Ph.D.; CLIA# [id number] 4 Standard intensity warfarin therapeutic range: 2.0-3.0 [...] 5 Kidney failure <15 (or dialysis) 6 [facility] Severe Sepsis and Septic Shock Management Bundle Measure requires all lactic acids initially measuring >2.0 mmol/L be repeated. 7 *Ascorbic acid is present which may interfere with detection of blood. 8 SEE RESULT BELOW Name: GM BASURTO : [address]: Luis Enrique Chi MD Acct: [id number] Unit: [id number] AGE: 43 Location: ED Re03/03/19 SEX: F Status: DEP ER SPEC: [id number] JUDY: 03/03/19-[address] [facility] [address]: Luis Enrique Chi MD REQ: [id number] RECD: 03/03/19 STATUS: COMP [facility] DR: Florencio Blackburn MD _ SOURCE: BLOOD,VENO SPDESC: ORDERED: Blood Cult Procedure Result Reported Site Aerobic Culture Bottle Final 03/08/19- 1636 ML No Growth Day 5 Anaerobic Culture Bottle Final 03/08/19- 1636 ML No Growth Day 5 * ML - Main Lab . END OF REPORT DEPARTMENT OF PATHOLOGY, [address] [place] [address] Davy Luna M.D. Director [facility] # [id number] Procedures Description No Information Available Medical Devices Description No Information Available Encounters Type Date Location Provider Dx Diagnosis Office Visit 05/26/2019 [facility] Internal Tahira Tang, J06.9 Acute upper 10:00a Medicine - Suite DO respiratory R infection, unspecified Office Visit 03/10/2019 [facility] Internal Nick Ybarra MD K11.20 Sialoadenitis, 11:00a Medicine - Suite unspecified R G47.00 Insomnia, unspecified G50.1 Atypical facial pain Office Visit 03/04/2019 3:00p [facility] Internal Barbarastcarroll F33.0 Major depressive Medicine - Suite MD Bere disorder, R recurrent, mild M17.9 Osteoarthritis of knee, unspecified K57.90 Dvrtclos of intest, part unsp, w/o perf or abscess w/o bleed Z00.01 Encounter for general adult medical exam w abnormal findings Z23 Encounter for immunization Office Visit 12/23/2018 8:00a [facility] Yadira Moise, M25.562 Pain in left at [place] M.D. knee M25.561 Pain in right knee [...] to Reason for Referral Status Appt Date [facility] Patient had PHQ9 of 11. She needs Created psychotherapy and medication and needs psychiatrist. [address] [place] [address] [phone] Gilda Carmichael M.D. Has history of dicerticulosis Received Partial 05/13/2019 with colectomy. Had sleeve surgery and since then has multiple episode of pancreatitis. She is from [place] and had GI doctor there but she wants GI doctor here in [place]. [address] [place] [address] [phone]
--- OUTSIDE RECORDS SUMMARY | 2019-06-05 11:37 | XMS REPORT | Continuity of Care Document ---
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 tolerated well. [...] Result H/L Range Note CBC Auto 03/03/2019 [facility] White Blood 5.9 10^3/uL Normal 3.5-10.[address] [place] [address] [phone] Red Blood Count 4.40 10^6/uL Normal 3.70-4.87 [...] Red Blood Cells % 0.5 Inr/Protime 03/03/2019 [facility] Inr 0.96 Normal 0.82-1.[address] [place] [address] [phone] Laboratory test 03/03/2019 [facility] Partial 38.1 High 26.0- 38.[address] [place] [address] Time PTT [phone] Comp Metabolic 03/03/2019 [facility] Sodium 140 mmol/L Normal 135-145 Panel [address] [place] [address] [phone] Potassium 3.9 mmol/L Normal 3.5-5.0 Chloride 105 [...] Egfr 105.3 >60 2 Laboratory test 03/03/2019 [facility] Lactic Acid 0.6 mmol/L Normal 0.5-2.0 3 finding [address] [place] [address] [phone] Urinalysis 03/03/2019 [facility] Urine Color Yellow Profile [address] [place] [address] [phone] Urine Appearance Clear Urine Specific [place] 1.024 Normal 1.010-1.030 Urine pH 5.0 Normal 5-9 Urine Urobilinogen Negative Negative Urine Ketones Negative Negative Urine Protein Negative Negative Urine Leukocytes Negative Negative Urine Blood Negative Negative * * Abnormal Negative 4 Urine Nitrite Negative Negative Urine Bilirubin Negative Negative Urine Glucose Negative Negative Laboratory test 03/03/2019 [facility] Blood Culture SEE RESULT [address] [place], [place] [id number] [phone] 1 Standard intensity warfarin therapeutic range: 2.0-3.0 [...] 5 Kidney failure <15 (or dialysis) 3 [facility] Severe Sepsis and Septic Shock Management Bundle Measure requires all lactic acids initially measuring >2.0 mmol/L be repeated. 4 *Ascorbic acid is present which may interfere with detection of blood. 5 SEE RESULT BELOW Name: GM BASURTO : [address]: Luis Enrique Chi MD Acct: [id number] Unit: [id number] AGE: 43 Location: ED Re03/03/19 SEX: F Status: DEP ER SPEC: [id number] JUDY: 03/03/19 [facility] DR: Luis Enrique Chi MD REQ: [id number] RECD: 03/03/19 STATUS: MARGARITA BROWNING DR: Florencio Blackburn MD _ SOURCE: BLOOD,[facility]: ORDERED: Blood Cult Procedure Result Reported Site Aerobic Culture Bottle Final 03/08/19- 1636 ML No Growth Day 5 Anaerobic Culture Bottle Final 03/08/19- 1636 ML No Growth Day 5 * ML - Main Lab . END OF REPORT DEPARTMENT OF PATHOLOGY, [address] [place] [address] Davy Luna M.D. 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 knee M25.561 Pain in right knee M25.462 Effusion, left knee M25.461 Effusion, right knee M17.0 Bilateral primary osteoarthritis of knee M23.303 Oth meniscus derangements, unsp medial meniscus, right knee Office Visit 12/03/2018 [facility] Alamguer, M17.11 Unilateral primary 2:15p Orthopedics at osteoarthritis, [place] right knee M23.303 Oth meniscus derangements, unsp medial meniscus, right knee Assessments Date Code Description Provider 05/26/2019 J06.9 Acute upper respiratory infection, unspecified Tahira Tang, DO 03/10/2019 K11.20 Sialoadenitis, unspecified Nick Ybarra [...] Tang, DOJ06.9 Acute upper respiratory infection, unspecifiedNew Labs:Viral Culture Respiratory, Ordered: 05/26/19Influenza A &amp ; B Request, Ordered: 05/26/19 Functional Status Description No Information Available Mental Status Description No Information Available Referrals Refer to Reason for Referral Status Appt Date [facility] Patient had PHQ9 of 11. She needs Created psychotherapy and medication and needs psychiatrist. [address] [place] [address] [phone] Gilda Carmichael M.D. Has history of dicerticulosis Received Partial 05/13/2019 with colectomy. Had sleeve surgery and since then has multiple episode of pancreatitis. She is from [place] and had GI doctor there but she wants GI doctor here in [place]. [address] [place] [address] [phone]
[2019-06-05 12:12] LABS: ABS Lymphocytes 1.6 10^3/ul (1.0-4.8); ABS Monocytes 0.5 10^3/ul (0-0.8); ABS Neutrophils 2.5 10^3/ul (1.5-7.7); Eosinophil % 0.1 %; Hematocrit 41 % (35-47); Hemoglobin 14.1 g/dL (12.0-16.0); Lymphocyte % 34.7 %; Mean Corpuscular HGB Conc 35 g/dL (31-36); Mean Corpuscular Hemoglobin 30 pg (27-31); Mean Corpuscular Volume 86 fL (80-97); Mean Platelet Volume 7.9 fL (7.4-10.4); Platelet Count 193 10^3/uL (150-450); Red Blood Count 4.76 10^6 /uL (3.70-4.87); Red Cell Distribution Width 14 % (10-15); White Blood Count 4.6 10^3/uL (3.5-10.8)
[2019-06-05 12:22] LABS: ALT < 3 U/L (7-52); AST 17 U/L (13-39); Albumin 4.3 g/dL (3.2-5.2); Albumin/Globulin Ratio 1.9 (1-3); Alkaline Phosphatase 68 U/L (34-104); Anion Gap 6 mmol/L (2-11); BUN/Creatinine Ratio 24.1 (8-20); Blood Urea Nitrogen 20 mg/dL (6-24); C Reactive Protein < 1.00 mg/L (<8.01); CO2 Carbon Dioxide 29 mmol/L (22-32); Calcium 9.7 mg/dL (8.6-10.3); Chloride 104 mmol/L (101-111); EGFR African American 90.8 (>60); Globulin 2.3 g/dL (2-4); Glucose 70 mg/dL (70-100); Potassium 4.1 mmol/L (3.5-5.0); Sodium 139 mmol/L (135-145); Total Protein 6.6 g/dL (6.4-8.9)
--- NOTE | 2019-06-05 12:22 | ED ---
Respiratory - HPI Summary HPI Summary: 43 year old F presenting to [facility] with a chief complaint of a cough, low-grade fever, and sore throat since weeks ago. Patient reports worsening shortness of breath and burning in the center of her chest especially when lying flat. The patient rates the pain 7/10 in severity. She was treated with a Z-Prince with no success and was tested for COVID-19 2 days ago but the results are still pending. She called the Department of Health and was advised to come to the emergency department for further evaluation. Medication list reviewed. Allergy list reviewed. Home Medications Medication Instructions Recorded Confirmed Type EPINEPHrine [Epipen] 0.3 ml INJ Q12HR PRN 09/18/18 04/19/19 History L.acidoph,Paracasei, B.lactis 1 each PO DAILY 09/18/18 04/19/19 History [Probiotic] Multivitamin [Multiple Vitamins] 1 tab PO DAILY 09/18/18 04/19/19 History traZODone TAB* [Desyrel TAB*] 200 mg PO BEDTIME 09/18/18 04/19/19 History Gabapentin CAP(*) [Neurontin 100 300 mg PO DAILY 03/03/19 04/19/19 History mg CAP(*)] hydrOXYzine HCL TAB* [Atarax TAB 50 mg PO QID PRN 03/03/19 04/19/19 History 50 MG *] DOXYcycline CAP(*) [DOXYcycline 100 mg PO BID #14 cap 04/19/19 Rx 100MG CAP(*)] - History of Current Complaint Chief Complaint: EDUpperRespComplaint Stated Complaint: RESP ISSUE PER PT Time Seen by Provider: 06/05/19 11:09 Hx Obtained From: Patient Onset/Duration: Lasting Days Current Severity: Moderate Pain Intensity: 7 Aggravating Factor(s): Other - Lying flat Associated Signs and Symptoms: SOB, Chest Pain - Allergy/Home Medications Allergies/Adverse Reactions: Allergies Allergy/AdvReac Type Severity Reaction Status Date / Time Penicillins Allergy Intermediate Hives Verified 06/05/19 11:07 Sulfa (Sulfonamide Allergy Intermediate Swelling Verified 06/05/19 11:07 Antibiotics) bupropion [From Wellbutrin] Allergy AGRESSIVELY Verified 06/05/19 11:07 VIOLENT BEHAVIOR Latex, Natural Rubber AdvReac Mild Rash Verified 06/05/19 11:07 Home Medications: Home Medications EPINEPHrine [Epipen] 0.3 ml INJ Q12HR PRN 09/18/18 [History Confirmed 04/19/19] L.acidoph,Paracasei, B.lactis [Probiotic] 1 each PO DAILY 09/18/18 [History Confirmed 04/19/19] Multivitamin [Multiple Vitamins] 1 tab PO DAILY 09/18/18 [History Confirmed 04/07] traZODone TAB* [Desyrel TAB*] 200 mg PO BEDTIME 09/18/18 [History Confirmed 04/07] Gabapentin CAP(*) [Neurontin 100 mg CAP(*)] 300 mg PO DAILY 03/03/19 [History Confirmed 04/19/19] hydrOXYzine HCL TAB* [Atarax TAB 50 MG *] 50 mg PO QID PRN 03/03/19 [History Confirmed 04/19/19] DOXYcycline CAP(*) [DOXYcycline 100MG CAP(*)] 100 mg PO BID #14 cap 04/19/19 [Rx ] predniSONE 20 mg TAB [Deltasone 20 MG TAB*] 40 mg PO DAILY 5 Days #10 tab [Rx] PMH/Surg Hx/FS Hx/Imm Hx Endocrine/Hematology History: Denies: Hx Diabetes Cardiovascular History: Denies: Hx Hypertension, Hx Pacemaker/ICD Respiratory History: Denies: Hx Asthma, Hx Chronic Obstructive Pulmonary Disease (COPD) History: Denies: Hx Dialysis, Hx Renal Disease Musculoskeletal History: Reports: Hx Fibromyalgia Sensory History: Denies: Hx Hearing Aid Psychiatric History: Denies: Hx Panic Disorder - Surgical History Surgery Procedure, Year, and Place: bariatric- sleeve. bowel resection. 3 C- SECTIONS. THORACIC SURGERY ( 13 CYST REMOVED FROM LUNGS), APPENDECTOMY, CHOLECYSTECTOMY, HERNIA REPAIRS, BILAT PATELLAR RELEASES, MENISCUS REPAIR RIGHT. HYSTERECTOMY Infectious Disease History: No Infectious Disease History: Reports: Hx Shingles Denies: Traveled Outside the [place] in Last 30 Days - Family History Known Family History: Negative: Hypertension Family History: Appendectomy, cholecystectomy, gastric sleeve, thoracic surgery for lung tumors, total hysterectomy, partial bowel resection - Social History Alcohol Use: None Hx Substance Use: Yes Substance Use Type: Reports: Marijuana Substance Use Comment - Amount & Last Used: medical - occasionally Hx Tobacco Use: No Smoking Status (MU): Never Smoked Tobacco Review of Systems Positive: Fever Positive: Sore Throat Positive: Chest Pain Positive: Shortness Of Breath, Cough All Other Systems Reviewed And Are Negative: Yes Physical Exam - Summary Physical Exam Summary: Constitutional: Well-developed, Well-nourished, Alert. (-) Distressed, speaking in full sentences Skin: Warm, Dry HENT: Normocephalic; Atraumatic Eyes: Conjunctiva normal Neck: Musculoskeletal ROM normal neck. (-) JVD, (-) Stridor, (-) Tracheal deviation Cardio: Rhythm regular, rate normal, Heart sounds normal; Intact distal pulses; Radial pulses are 2+ and symmetric. (-) Murmur Pulmonary/Chest wall: Effort normal. (-) Respiratory distress, (-) Wheezes, (-) Rales, non-labored breathing Abd: Soft, (-) tenderness, (-) Distension, (-) Guarding, (-) Rebound Musculoskeletal: (-) Edema Lymph: (-) Cervical adenopathy Neuro: Alert, Oriented x3 Psych: Mood and affect Normal Triage Information Reviewed: Yes Vital Signs On Initial Exam: Initial Vitals Temp Pulse Resp BP Pulse Ox 98.4 F 92 14 121/70 97 06/05/19 11:02 06/05/19 11:02 06/05/19 11:02 06/05/19 11:02 06/05/19 11:02 Vital Signs Reviewed: Yes Procedures - Sedation Patient Received Moderate/Deep Sedation with Procedure: No Diagnostics - Vital Signs Vital Signs Temp Pulse Resp BP Pulse Ox 06/05/19 11:02 98.4 F 92 14 121/70 97 - Laboratory Result Diagrams: 06/05/19 11:50 06/05/19 11:50 Lab Statement: Any lab studies that have been ordered have been reviewed, and results considered in the medical decision making process. - Radiology Chest x-ray Radiology Interpretation Completed By: Radiologist Summary of Radiographic Findings: NO ACTIVE CARDIOPULMONARY DISEASE. ED physician has reviewed this report. Disposition - Course Course Of Treatment: Patient's here 3 weeks of URI symptoms. Patient has been treated with antibiotics with no relief. Patient is here she is feeling worse. Patient is overall well appearing and not in any respiratory distress. Patient had chest x-ray which showed no abnormality. Patient had blood performed which was grossly unremarkable. Patient was started on an albuterol inhaler for her chest tightness. Patient was given a prescription for steroids that she will take if her Covid test comes back negative. - Diagnoses Provider Diagnoses: Cough, Shortness of breath, Sore throat Discharge ED - Sign-Out/Discharge Documenting (check all that apply): Patient Departure - Discharge Plan Condition: Stable Disposition: HOME Prescriptions: predniSONE 20 mg TAB [Deltasone 20 MG TAB*] 40 mg PO DAILY 5 Days #10 tab Patient Education Materials: Pharyngitis (ED), Acute Cough (ED), Shortness of Breath (ED) Referrals: Florencio Blackburn MD [Primary Care Provider] - Additional Instructions: Use your new medications as prescribed. You were seen in the emergency department for coronavirus rule out. The department of health will contact you within 24 hours. Due to the pandemic, you should stay in your house and self quarantine. See the separate quarantine paper for further instructions. You should wear a mask if you're outside of your personal room. We encourage handwashing as well as limited contact with other people including the elderly and the immunocompromised. If any studies were not completed at the time of discharge you will be called with the relevant results. Return to emergency department for severe trouble breathing, worsening or concerning symptoms It was a pleasure taking care of you today. - Billing Disposition and Condition Condition: STABLE Disposition: Home - Attestation Statements Document Initiated by William: Yes Documenting Scribe: Mercedes Graham Provider For Whom William is Documenting (Include Credential): Fred Nicholson MD Scribe Attestation: Mercedes Elder scribed for Fred Nicholson MD on 06/05/19 at 1608. Scribe Documentation Reviewed: Yes Provider Attestation: The documentation as recorded by the Mercedes luna accurately reflects the service I personally performed and the decisions made by me, Fred Nicholson MD Status of Scribe Document: Viewed
[2019-06-05] MEDS ORDERED: Albuterol HFA INHALER* 8 gm MDI INH ONE (12:23)
[2019-06-05 13:52] VITALS: BP 124/70
== END 2019-06-05 13:51 | disposition home or self-care (01) ==
LOC: ED 10:44
DX: R05 Cough (principal); R06.02 Shortness of breath; J02.9 Acute pharyngitis, unspecified; M79.7 Fibromyalgia; Z98.84 Bariatric surgery status; Z90.49 Acquired absence of other specified parts of digestive tract; Z90.710 Acquired absence of both cervix and uterus; Z90.89 Acquired absence of other organs; Z79.899 Other long term (current) drug therapy; Z88.0 Allergy status to penicillin; Z88.2 Allergy status to sulfonamides; Z88.8 Allergy status to other drugs, medicaments and biological substances; Z91.040 Latex allergy status
CPT/HCPCS: 36415; 71045; 80053; 83880; 85025; 86140; 99282; A9270-GY

== ENCOUNTER 2019-06-16 17:08 | Emergency (ER) | payer OTHER ==
--- NOTE | 2019-06-16 17:35 | UC ---
Respiratory Complaint HPI - HPI Summary HPI Summary: 43 yo female presents with cough and feeling chest tightness. She has had these symptoms since about 05/26/19. She had COVID testing done ordered by her PCP on which was negative. She was also prescribed zpak and an albuterol inhaler. She completed the zpak with no change. She was seen in the ER on 06/04 for same symptoms (COVID was pending at that time) and workup, including CXR, was negative. She was prescribed steroids, but was advised to wait for negative COVID results before beginning steroids. She contacted her PCP today and was told to get a CXR before starting steroids. PCP was apparently supposed to send an order for this, but pt arrived here and there was no order. She is here requesting a chest XR. She tells me that she also went to the drive through COVID clinic and was retested for COVID today. States albuterol inhaler is helping, but no relieving her symptoms. She denies fever, chills, sinus symptoms , sore throat, abdominal pain, n/v. She also endorses pain in her left ribs and left CVA and central chest wall pain and throat gland pain. She notes she has a hx of chronic pain/ fibromyalgia. - History of Current Complaint Chief Complaint: UCRespiratory Stated Complaint: SOB,CHESTPAIN,TIGHTNESS Time Seen by Provider: 06/16/19 17:34 Hx Obtained From: Patient Hx Last Menstrual Period: HYSTERECTOMY Severity Initially: Moderate Severity Currently: Moderate Pain Intensity: 7 - Allergies/Home Medications Allergies/Adverse Reactions: Allergies Allergy/AdvReac Type Severity Reaction Status Date / Time Penicillins Allergy Intermediate Hives Verified 06/16/19 17:26 Sulfa (Sulfonamide Allergy Intermediate Swelling Verified 06/16/19 17:26 Antibiotics) bupropion [From Wellbutrin] Allergy AGRESSIVELY Verified 06/16/19 17:26 VIOLENT BEHAVIOR Latex, Natural Rubber AdvReac Mild Rash Verified 06/16/19 17:26 Home Medications: Home Medications EPINEPHrine [Epipen] 0.3 ml INJ Q12HR PRN 09/18/18 [History Confirmed 06/16/19] L.acidoph,Paracasei, B.lactis [Probiotic] 1 each PO DAILY 09/18/18 [History Confirmed 06/16/19] Multivitamin [Multiple Vitamins] 1 tab PO DAILY 09/18/18 [History Confirmed ] traZODone TAB* [Desyrel TAB*] 300 mg PO BEDTIME 09/18/18 [History Confirmed ] Gabapentin CAP(*) [Neurontin 100 mg CAP(*)] 300 mg PO DAILY 03/03/19 [History Confirmed 06/16/19] hydrOXYzine HCL TAB* [Atarax TAB 50 MG *] 50 mg PO QID PRN 03/03/19 [History Confirmed 06/16/19] predniSONE 20 mg TAB [Deltasone 20 MG TAB*] 40 mg PO DAILY 5 Days #10 tab [Rx Confirmed 06/16/19] LORazepam TAB(*) [Ativan 1 MG TAB (*)] 1 mg PO BID PRN 06/16/19 [History Confirmed 06/16/19] hydrOXYzine HCL [Hydroxyzine HCl] 150 mg PO QPM 06/16/19 [History Confirmed ] PMH/Surg Hx/FS Hx/Imm Hx - Additional Past Medical History Additional PMH: Fibromyalgia Psychological History: Anxiety, Depression - Surgical History Surgical History: Yes Surgery Procedure, Year, and Place: bariatric- sleeve. bowel resection. 3 C- SECTIONS. THORACIC SURGERY ( 13 CYST REMOVED FROM LUNGS), APPENDECTOMY, CHOLECYSTECTOMY, HERNIA REPAIRS, BILAT PATELLAR RELEASES, MENISCUS REPAIR RIGHT. HYSTERECTOMY - Family History Known Family History: Positive: Respiratory Disease Negative: Hypertension Family History: Appendectomy, cholecystectomy, gastric sleeve, thoracic surgery for lung tumors, total hysterectomy, partial bowel resection - Social History Lives: With Family Alcohol Use: Occasionally Substance Use Type: Marijuana Substance Use Comment - Amount & Last Used: medical - occasionally Smoking Status (MU): Never Smoked Tobacco Review of Systems All Other Systems Reviewed And Are Negative: No Constitutional: Positive: Negative Skin: Positive: Negative Eyes: Positive: Negative ENT: Positive: Negative Respiratory: Positive: Shortness Of Breath, Cough Cardiovascular: Positive: Negative Gastrointestinal: Positive: Negative Genitourinary: Positive: Negative Motor: Positive: Negative Neurovascular: Positive: Negative Musculoskeletal: Positive: Other: - Left rib pain. Left back pain. Neurological/Mental Status: Positive: Negative Psychological: Positive: Negative Physical Exam - Summary Physical Exam Summary: GENERAL: NAD. WDWN. No pain distress. SKIN: No rashes, sores, or open wounds. HEENT: Head: AT/NC Eyes: PERRLA. EOM intact. Conjunctiva clear without inflammation or discharge. Ears: Hearing grossly normal. TMs intact, no bulging, erythema, or edema. Nose: Nasal mucosa pink and moist. NTTP maxillary and frontal sinus. Throat: Posterior oropharynx without exudates, erythema, or tonsillar enlargement. Uvula midline. NECK: Supple. No lymphadenopathy. Tenderness anterior cervical b/l. CHEST: CTAB. No r/r/w. No accessory muscle use. Breathing comfortably and in no distress. CV: RRR. Pulses intact. Brisk cap refill. ABDOMEN: Soft. NTTP. No distention or guarding. Left CVA ttp. Bowel sounds present MSK: FROM and 5/5 strength throughout. No edema. Left midaxillary rib ttp. Central chest wall ttp. NEURO: Alert. PSYCH: Age appropriate behavior. Triage Information Reviewed: Yes Vital Signs: Vital Signs: Temp Pulse Resp BP Pulse Ox 98.6 F 72 16 132/79 99 06/16/19 17:42 06/16/19 17:42 06/16/19 17:42 06/16/19 17:42 06/16/19 17:42 Laboratory Tests 06/16/19 18:30 POC Urine Color Light yellow POC Urine Clarity Clear POC Urine pH 7.0 POC Ur Specif [place] 1.010 POC Urine Protein Negative POC Ur Glucose (UA) Negative POC Urine Ketones Negative POC Urine Blood Negative POC Urine Nitrite Negative POC Urine Bilirubin Negative POC Urine Urobilinogen 0.2 POC U Leukocyte Esteras Trace A Vital Signs Reviewed: Yes Diagnostics - Radiology CXR Radiology Interpretation Completed By: ED Physician Summary of Radiographic Findings: NAD - EKG Summary of EKG Findings: 69bpm NSR. No ST changes. Read by Dr. Campuzano Respiratory Course/Dx - Course Course Of Treatment: CXR wet read negative today. UA trace leuks. EKG normal as above. Well's score 0. I am unsure the cause of her symptoms, but she has had a negative COVID test x1 with 1 still pending (today). ED workup was negative. Repeat CXR today wet read negative. EKG normal. UA with trace leuks, but no urinary symptoms today - thus will send for culture and treat based on results. Advised to f/u with PCP for her continued symptoms >3 weeks. Go to ED if symptoms worsen or if she develops a fever. - Differential Dx/Diagnosis Differential Diagnosis/HQI/PQRI: Asthma, Bronchitis, CHF, Pulmonary Edema, Lower Resp Infection, Pneumothorax, Pulmonary Embolism Provider Diagnosis: Chest wall pain, SOB (shortness of breath) Discharge ED - Sign-Out/Discharge Documenting (check all that apply): Patient Departure All imaging exams completed and their final reports reviewed: No - Discharge Plan Condition: Stable Disposition: HOME Referrals: Florencio Blackburn MD [Primary Care Provider] - Additional Instructions: Your workup and exam today were normal/negative. Your chest x-ray appears normal today. The radiologist will read this in the morning and we will call you with any changes to your treatment. Your primary doctor should also have access to this x-ray. I recommend a follow up with your primary doctor within 1 week if your symptoms continue. If you develop a fever, SOB, chest pain - please go to the ED immediately. - Billing Disposition and Condition Condition: STABLE Disposition: Home
[2019-06-16 17:46] VITALS: BP 132/79
--- NOTE | 2019-06-17 08:18 | UC ---
- Progress Note Progress Note: RADIOLOGY REPORT REVIEWED. NO ACTIVE CARDIOPULMONARY DISEASE. NO CHANGE IN MGMT. Course/Dx - Diagnoses Provider Diagnoses: Chest wall pain, SOB (shortness of breath) Discharge ED - Sign-Out/Discharge Documenting (check all that apply): Post-Discharge Follow Up All imaging exams completed and their final reports reviewed: Yes - Discharge Plan Condition: Stable Disposition: HOME Referrals: Florencio Blackburn MD [Primary Care Provider] - Additional Instructions: Your workup and exam today were normal/negative. Your chest x-ray appears normal today. The radiologist will read this in the morning and we will call you with any changes to your treatment. Your primary doctor should also have access to this x-ray. I recommend a follow up with your primary doctor within 1 week if your symptoms continue. If you develop a fever, SOB, chest pain - please go to the ED immediately. - Billing Disposition and Condition Condition: STABLE Disposition: Home
--- NOTE | 2019-06-19 08:42 | ED ---
Progress - Progress Note Progress Note: Urine culture from June 16, 2019 comes back as strep group B 1-10,000. From the note of the same date the patient did not complain of urinary tract infection symptoms. Patient is allergic to penicillin and Bactrim. Nursing to call patient to determine if she is having UTI symptoms. If she is having UTI symptoms we will start an antibiotic. The best antibiotic to treat strep group B is a cephalosporin. Nursing to find out if the patient's had Keflex, Omnicef or any other cephalosporin in the past without any problems with reaction. Will determine whether or not to treat with an antibiotic based on the patient still having symptoms. Will determine the antibiotic based on whether or not she can take cephalosporins. If she is unable to take several sports we'll treat with clindamycin. Course/Dx - Diagnoses Provider Diagnoses: Chest wall pain, SOB (shortness of breath) Discharge ED - Sign-Out/Discharge Documenting (check all that apply): Patient Departure All imaging exams completed and their final reports reviewed: Yes - Discharge Plan Condition: Stable Disposition: HOME Referrals: Florencio Blackburn MD [Primary Care Provider] - Additional Instructions: Your workup and exam today were normal/negative. Your chest x-ray appears normal today. The radiologist will read this in the morning and we will call you with any changes to your treatment. Your primary doctor should also have access to this x-ray. I recommend a follow up with your primary doctor within 1 week if your symptoms continue. If you develop a fever, SOB, chest pain - please go to the ED immediately. - Billing Disposition and Condition Condition: STABLE Disposition: Home
== END 2019-06-16 18:52 | disposition home or self-care (01) ==
LOC: UCEAST 17:08
DX: R07.89 Other chest pain (principal); R06.02 Shortness of breath; M79.7 Fibromyalgia; F41.9 Anxiety disorder, unspecified; F32.9 Major depressive disorder, single episode, unspecified; Z79.52 Long term (current) use of systemic steroids; Z79.899 Other long term (current) drug therapy; Z88.0 Allergy status to penicillin; Z88.2 Allergy status to sulfonamides; Z88.8 Allergy status to other drugs, medicaments and biological substances; Z91.040 Latex allergy status
CPT/HCPCS: 71046; 81003; 87077; 87086; 99211; G0463

== ENCOUNTER 2019-08-20 14:33 | Inpatient (IN) ==
[2019-08-20] MEDS ORDERED: NS 0.9% 1000 ml BAG 1,000 ML IV ONE (15:28)
[2019-08-20] MEDS ORDERED: Ondansetron 4 mg VIAL 2 MG/ML 2 ml VIAL IV ONE ×2 (15:28→17:26)
[2019-08-20] MEDS ORDERED: Morphine 4 MG/ML VIAL (1 ml) IV ONE ×2 (15:28→17:26)
[2019-08-20 16:22] LABS: ABS Lymphocytes 1.8 10^3/ul (1.0-4.8); ABS Monocytes 0.4 10^3/ul (0-0.8); Eosinophil % 0.1 %; Hematocrit 39 % (35-47); Hemoglobin 13.5 g/dL (12.0-16.0); Lymphocyte % 37.9 %; Mean Corpuscular HGB Conc 35 g/dL (31-36); Mean Corpuscular Hemoglobin 30 pg (27-31); Mean Corpuscular Volume 85 fL (80-97); Mean Platelet Volume 7.5 fL (7.4-10.4); Platelet Count 174 10^3/uL (150-450); Red Blood Count 4.59 10^6 /uL (3.70-4.87); Red Cell Distribution Width 14 % (10-15); White Blood Count 4.7 10^3/uL (3.5-10.8)
[2019-08-20 16:43] LABS: Urine Appearance Cloudy; Urine Bilirubin Negative (Negative); Urine Blood Negative (Negative); Urine Color Yellow; Urine Glucose Negative (Negative); Urine Ketones Negative (Negative); Urine Nitrite Negative (Negative); Urine Protein Negative (Negative); Urine Specific Gravity 1.023 (1.010-1.030); Urine Urobilinogen Negative (Negative)
[2019-08-20 17:17] LABS: Albumin 4.2 g/dL (3.2-5.2); Albumin/Globulin Ratio 1.8 (1-3); BUN/Creatinine Ratio 22.1 (8-20); C Reactive Protein 3.42 mg/L (<8.01); Calcium 9.4 mg/dL (8.6-10.3); EGFR African American 87.1 (>60); Globulin 2.3 g/dL (2-4); Potassium 4.2 mmol/L (3.5-5.0); Total Bilirubin 0.7 mg/dL (0.2-1.0); Total Protein 6.5 g/dL (6.4-8.9)
[2019-08-20] MEDS ORDERED: Lorazepam PYXIS KEY PRN (19:40)
[2019-08-20] MEDS ORDERED: LORazepam 2 mg VIAL 1 ml IV PUSH ONE (19:40)
[2019-08-20] MEDS ORDERED: Pantoprazole VIAL 40 MG VIAL IV ONE (20:39)
[2019-08-20] MEDS ORDERED: Al Hydrox/Mg Hydrox/Simet LIQ 30 ML UDC PO PRN (21:39)
[2019-08-20] MEDS ORDERED: LORazepam 1 mg TAB (*) PO PRN (21:46)
[2019-08-20 22:20] LABS: Magnesium 1.7 mg/dL (1.9-2.7)
[2019-08-20 22:50] LABS: Hepatitis B Surface Antigen Nonreactive (Nonreactive)
[2019-08-20 23:02] LABS: Erythrocyte Sed Rate 5 mm/Hr (0-19)
[2019-08-20 23:07] LABS: Hepatitis C Antibody Negative (Negative)
[2019-08-21] MEDS: NS 0.9% 1000 ml BAG 1,000 ML IV SCH ×3 (00:15→17:23)
[2019-08-21] MEDS: Ondansetron 4 mg VIAL 2 MG/ML 2 ml VIAL IV PRN ×2 (01:40→09:59)
[2019-08-21] MEDS ORDERED: Morphine 2 MG/ML SYRINGE IV ONE (02:00)
[2019-08-21] MEDS ORDERED: Magnesium Sulfate 2 gm BAG 2 GM/50 ML BAG IVPB ONE (08:50)
[2019-08-21] MEDS: Morphine 2 MG/ML SYRINGE IV PRN ×3 (09:59→18:45)
[2019-08-21] MEDS: Pantoprazole VIAL 40 MG VIAL IV SCH (10:00)
[2019-08-21 10:32] LABS: Hematocrit 39 % (35-47); Hemoglobin 13.2 g/dL (12.0-16.0); Mean Corpuscular HGB Conc 34 g/dL (31-36); Mean Corpuscular Hemoglobin 29 pg (27-31); Mean Corpuscular Volume 86 fL (80-97); Mean Platelet Volume 8.4 fL (7.4-10.4); Platelet Count 131 10^3/uL (150-450); Red Blood Count 4.52 10^6 /uL (3.70-4.87); Red Cell Distribution Width 14 % (10-15); White Blood Count 3.3 10^3/uL (3.5-10.8)
[2019-08-21 10:37] LABS: Albumin 3.6 g/dL (3.2-5.2); Albumin/Globulin Ratio 1.9 (1-3); BUN/Creatinine Ratio 15.6 (8-20); Calcium 9.1 mg/dL (8.6-10.3); EGFR Non-African American 81.8 (>60); Globulin 1.9 g/dL (2-4); Potassium 4.2 mmol/L (3.5-5.0); Total Bilirubin 0.6 mg/dL (0.2-1.0); Total Protein 5.5 g/dL (6.4-8.9)
[2019-08-21 10:38] LABS: Activated Partial Thrombo Time 32.5 seconds (26.0-38.0)
[2019-08-21] MEDS: Prochlorperazine 5 mg/ml 2 ml VIAL (10 mg) IV PRN ×2 (12:12→18:45)
[2019-08-21 12:13] LABS: ABS Lymphocytes 1.6 10^3/ul (1.0-4.8); ABS Monocytes 0.3 10^3/ul (0-0.8); Eosinophil % 0.1 %; Lymphocyte % 49.1 %
[2019-08-21] MEDS ORDERED: Iohexol 300 (CONTRAST) 10 ML SDV IV ONE (13:08)
[2019-08-22] MEDS: NS 0.9% 1000 ml BAG 1,000 ML IV SCH (01:32)
[2019-08-22] MEDS: Prochlorperazine 5 mg/ml 2 ml VIAL (10 mg) IV PRN (07:03)
[2019-08-22] MEDS: Morphine 2 MG/ML SYRINGE IV PRN (07:03)
[2019-08-22 07:54] LABS: ABS Lymphocytes 1.6 10^3/ul (1.0-4.8); ABS Monocytes 0.4 10^3/ul (0-0.8); Hematocrit 36 % (35-47); Hemoglobin 12.4 g/dL (12.0-16.0); Lymphocyte % 41.4 %; Mean Corpuscular HGB Conc 34 g/dL (31-36); Mean Corpuscular Hemoglobin 29 pg (27-31); Mean Corpuscular Volume 85 fL (80-97); Mean Platelet Volume 7.5 fL (7.4-10.4); Platelet Count 144 10^3/uL (150-450); Red Blood Count 4.24 10^6 /uL (3.70-4.87); Red Cell Distribution Width 14 % (10-15); White Blood Count 3.9 10^3/uL (3.5-10.8)
[2019-08-22 07:58] LABS: INR 0.97 (0.82-1.09)
[2019-08-22 08:16] LABS: ALT 216 U/L (7-52); AST 65 U/L (13-39); Albumin 3.3 g/dL (3.2-5.2); Albumin/Globulin Ratio 1.7 (1-3); Alkaline Phosphatase 173 U/L (34-104); Anion Gap 3 mmol/L (2-11); BUN/Creatinine Ratio 11.9 (8-20); Blood Urea Nitrogen 10 mg/dL (6-24); CO2 Carbon Dioxide 27 mmol/L (22-32); Calcium 8.8 mg/dL (8.6-10.3); Chloride 110 mmol/L (101-111); EGFR African American 89.5 (>60); Globulin 1.9 g/dL (2-4); Glucose 85 mg/dL (70-100); Magnesium 1.7 mg/dL (1.9-2.7); Potassium 4.2 mmol/L (3.5-5.0); Sodium 140 mmol/L (135-145); Total Protein 5.2 g/dL (6.4-8.9)
[2019-08-22 08:32] LABS: % Iron Saturation 26 % (15-55); Iron 76 ug/dL (50-212); Total Iron Binding Capacity 290 mcg/dL (250-450); Transferrin 207 mg/dL (203-362)
[2019-08-22] MEDS: Pantoprazole VIAL 40 MG VIAL IV SCH (08:46)
[2019-08-22] MEDS: Ondansetron 4 mg VIAL 2 MG/ML 2 ml VIAL IV PRN (11:52)
[2019-08-22] MEDS ORDERED: Midazolam 10 mg/10 ml VIAL 1 mg/ml 10 ml VIAL (10 mg) ONE (12:42)
[2019-08-22] MEDS ORDERED: fentaNYL 100 mcg/2 ml 50 MCG/ML VIAL ONE (12:42)
[2019-08-22 13:51] LABS: Chlamydia trachomatis NAA Negative (Negative); Neisseria gonorrhoeae (GC) NAA Negative (Negative)
[2019-08-23 09:15] LABS: Albumin 3.5 g/dL (3.2-5.2); Albumin/Globulin Ratio 1.8 (1-3); Calcium 8.9 mg/dL (8.6-10.3); EGFR Non-African American 84.3 (>60); Potassium 4.1 mmol/L (3.5-5.0); Total Bilirubin 0.5 mg/dL (0.2-1.0); Total Protein 5.5 g/dL (6.4-8.9)
[2019-08-23 11:58] VITALS: BP 91/52
[2019-08-23] MEDS: Prochlorperazine 5 mg/ml 2 ml VIAL (10 mg) IV PRN (13:12)
[2019-08-25 13:03] LABS: Smooth Muscle Antibody Negative (Negative)
[2019-08-25 13:35] LABS: Mitochondria M2 Antibody <0.1 U
== END 2019-08-23 14:05 | disposition home or self-care (01) | DRG 392 ==
LOC: MED 14:33 → ED 14:33
PROVIDERS: ADMIT Pediatrics; ATTEND Hospitalist

== ENCOUNTER 2021-06-02 09:31 | Observation (INO) ==
[~2021-06-02 09:31] MED LIST: Buffered Lidocaine 1% SYRIN 1 ml INTRADERM ONE; Lactated Ringers 1000 ml BAG 1,000 ML IV SCH; Metoclopramide 5 MG/ML VIAL (10 mg) IV PRN; Naloxone 0.4 mg VIAL 0.4 mg/ml 1 ml VIAL IV PRN; Ondansetron 4 mg VIAL 2 MG/ML 2 ml VIAL IV PRN; fentaNYL 100 mcg/2 ml 50 MCG/ML VIAL IV PRN
[2021-06-02] MEDS ORDERED: Clindamycin 900 MG/D5W BAG 900 MG/50 ML BAG IVPB ONE (09:46)
[2021-06-02] MEDS ORDERED: DiMENhydriNATE IV 50 mg/ml 1 ml VIAL ONE (09:50)
[2021-06-02] MEDS ORDERED: Buffered Lidocaine 1% SYRIN 1 ml INTRADERM ONE (09:52)
[2021-06-02] MEDS ORDERED: DiMENhydriNATE IV 50 mg/ml 1 ml VIAL IV PUSH ONE (09:52)
[2021-06-02] MEDS ORDERED: Lactated Ringers 1000 ml BAG 1,000 ML IV SCH ×2 (10:00→15:00)
[2021-06-02] MEDS ORDERED: Propofol 10 MG/ML 20 ML BTL ONE (10:30)
[2021-06-02] MEDS ORDERED: Lidocaine 2% PF 5 ML VIAL ONE (10:30)
[2021-06-02] MEDS ORDERED: Dexamethasone IV 4 MG/ML VIAL 1 ml VIAL ONE (10:30)
[2021-06-02] MEDS ORDERED: Ondansetron 4 mg VIAL 2 MG/ML 2 ml VIAL ONE ×2 (10:30→12:05)
[2021-06-02] MEDS ORDERED: Midazolam 2 mg/2 ml VIAL 1 mg/ml 2 ml VIAL (2 mg) ONE ×2 (10:31→11:15)
[2021-06-02] MEDS ORDERED: fentaNYL 100 mcg/2 ml 50 MCG/ML VIAL ONE ×4 (10:31→13:53)
[2021-06-02] MEDS ORDERED: Ropivacaine 5 MG/ML 20 ML VIAL 0.5% (100 MG) ONE ×2 (11:40→12:03)
[2021-06-02] MEDS ORDERED: HYDROmorphone 0.5 MG/0.5 ML SYRINGE ONE ×2 (13:06)
[2021-06-02] MEDS ORDERED: EPHEDrine (Pressors) 50 MG/ML VIAL ONE (13:19)
[2021-06-02] MEDS ORDERED: Lactulose 30 ml UDC PO PRN (14:16)
[2021-06-02] MEDS ORDERED: Magnesium Hydroxide LIQ 30 ML UDC PO PRN (14:16)
[2021-06-02] MEDS ORDERED: Ondansetron 4 mg VIAL 2 MG/ML 2 ml VIAL IV PRN (14:16)
[2021-06-02] MEDS ORDERED: diPHENhydraMINE 25 mg TAB PO PRN (14:16)
[2021-06-02] MEDS ORDERED: diPHENhydraMINE IV 50 MG/ML 1 ml VIAL (BENADRYL) IV PRN (14:16)
[2021-06-02] MEDS ORDERED: Ondansetron ODT 4 mg TAB 4 MG TAB PO PRN (14:16)
[2021-06-02] MEDS ORDERED: Clindamycin 600 MG/D5W BAG 600 MG/50 ML BAG IV SCH (15:00)
[2021-06-02] MEDS ORDERED: HYDROcodone/ACETAMIN 5/325 mg TAB ONE ×2 (15:59→16:29)
[2021-06-02] MEDS: HYDROcodone/ACETAMIN 5/325 mg TAB PO PRN ×2 (16:00→16:30)
[2021-06-02] MEDS ORDERED: EPINEPHrine PEN ADULT(NF) 0.3 MG SYRINGE PRN (17:41)
[2021-06-02] MEDS: Magnesium Hydroxide LIQ 30 ML UDC PO SCH (20:21)
[2021-06-02] MEDS ORDERED: Acetaminophen IV 1 GM/100ML 100 ML IV PRN (20:34)
[2021-06-02] MEDS: Clindamycin 600 MG/D5W BAG 600 MG/50 ML BAG IV SCH (21:53)
[2021-06-02] MEDS: CLINDAMYCIN PHOSPHATE 1% TOPICAL SCH (22:41)
[2021-06-03] MEDS: Clindamycin 600 MG/D5W BAG 600 MG/50 ML BAG IV SCH ×2 (05:51→13:27)
[2021-06-03 06:07] LABS: Hematocrit 34 % (35-47); Hemoglobin 11.5 g/dL (12.0-16.0); Mean Platelet Volume 7.7 fL (7.4-10.4); Platelet Count 173 10^3/uL (150-450)
[2021-06-03 06:30] LABS: Calcium 8.8 mg/dL (8.6-10.3); Potassium 4.6 mmol/L (3.5-5.0); eGFR CKD-EPI 98.4 (>60)
[2021-06-03] MEDS: CLINDAMYCIN PHOSPHATE 1% TOPICAL SCH (07:18)
[2021-06-03] MEDS: Magnesium Hydroxide LIQ 30 ML UDC PO SCH (08:36)
[2021-06-03] MEDS ORDERED: Vitamin THERAPEUTIC TAB PO SCH (09:00)
[2021-06-03 10:54] VITALS: BP 98/57
== END 2021-06-03 15:30 | disposition home or self-care (01) ==
LOC: OR 09:31 → SSU 09:31
PROVIDERS: ADMIT Orthopaedic Surgery Adult Reconstructive Orthopaedic Surgery; ATTEND Orthopaedic Surgery Adult Reconstructive Orthopaedic Surgery

== ENCOUNTER 2024-02-26 13:24 | Observation (INO) ==
[~2024-02-26 13:24] MED LIST changes: +Acetaminophen IV 1 GM/100ML 1,000 MG/100 ML BAG IV ONE; -Buffered Lidocaine 1% SYRIN 1 ml INTRADERM ONE; +Dexamethasone IV 4 MG/ML VIAL 1 ml VIAL ONE; -Lactated Ringers 1000 ml BAG 1,000 ML IV SCH; +Midazolam 2 mg/2 ml VIAL 1 mg/ml 2 ml VIAL (2 mg) ONE; +NS 0.45% 1000 ml BAG 1,000 ML IV SCH; +Propofol 10 mg/ml 100 ML BTL 0 MG/0 ML BTL ONE; +ROPIVACAINE 5 MG/ML 30 ML BTL (0.5%) ONE; -fentaNYL 100 mcg/2 ml 50 MCG/ML VIAL IV PRN; +fentaNYL 100 mcg/2 ml 50 MCG/ML VIAL ONE
[2024-02-26] MEDS: Scopolamine 1 mg/72hr PATCH TRANSDERM ONE (13:49)
[2024-02-26] MEDS: Buffered Lidocaine 1% SYRIN 1 ml INTRADERM ONE (13:49)
[2024-02-26] MEDS ORDERED: Tranexamic Acid 1 GM/100ML BAG 2,000 MG/200 ML BAG IV ONE (13:59)
[2024-02-26] MEDS: Lactated Ringers 1000 ml BAG 1,000 ML IV SCH ×2 (14:04→20:00)
[2024-02-26] MEDS ORDERED: ROPIVACAINE 5 MG/ML 30 ML BTL (0.5%) ONE (14:11)
[2024-02-26] MEDS ORDERED: Clindamycin 900 MG/50 **NS BAG 900 MG/50 ML BAG ONE (14:15)
[2024-02-26 14:24] LABS: Rapid COVID-19 Molecular Undetected (Undetected)
[2024-02-26] MEDS ORDERED: KETAMINE HCL 10 MG/ML 20 ml VIAL (200 MG) ONE (14:44)
[2024-02-26] MEDS ORDERED: fentaNYL 250 mcg/5 ml 50 MCG/ML 5 ml VIAL (250 MCG) ONE (14:44)
[2024-02-26] MEDS ORDERED: Rocuronium 50 mg VIAL 10 mg/ml 5 ml VIAL (50 mg) ONE (14:44)
[2024-02-26] MEDS ORDERED: Propofol 10 MG/ML 20 ML BTL ONE (14:45)
[2024-02-26] MEDS ORDERED: Lidocaine 2% PF 5 ML VIAL ONE (14:45)
[2024-02-26] MEDS ORDERED: Dexamethasone IV 4 MG/ML VIAL 1 ml VIAL ONE (15:29)
[2024-02-26] MEDS ORDERED: Ondansetron 4 mg VIAL 2 MG/ML 2 ml VIAL ONE (15:29)
[2024-02-26] MEDS ORDERED: HYDROmorphone 0.5 MG/0.5 ML SYRINGE ONE (15:30)
[2024-02-26] MEDS ORDERED: Glycopyrrolate IV 0.2 MG/ML 1 ML VIAL ONE (15:47)
[2024-02-26] MEDS ORDERED: Morphine 2 MG/ML SYRINGE IV PRN (15:54)
[2024-02-26] MEDS ORDERED: Ondansetron 4 mg VIAL 2 MG/ML 2 ml VIAL IV PRN (15:54)
[2024-02-26] MEDS ORDERED: Lactulose 30 ml UDC PO PRN (15:54)
[2024-02-26] MEDS ORDERED: Ondansetron ODT 4 mg TAB 4 MG TAB PO PRN (15:54)
[2024-02-26] MEDS ORDERED: Magnesium Hydroxide LIQ 30 ML UDC PO PRN (15:54)
[2024-02-26] MEDS ORDERED: fentaNYL 100 mcg/2 ml 50 MCG/ML VIAL ONE (18:33)
[2024-02-26] MEDS: fentaNYL 100 mcg/2 ml 50 MCG/ML VIAL IV PRN (18:36)
[2024-02-26] MEDS: ceFAZolin 2 GM PREMIX 2 GM/50 ML BAG IV SCH (22:13)
[2024-02-26] MEDS: Magnesium Hydroxide LIQ 30 ML UDC PO SCH (22:17)
[2024-02-27] MEDS: Calcium Carb (TUMS) 500 mg CHEW TAB PO PRN (05:41)
[2024-02-27 05:54] LABS: Mean Platelet Volume 8.1 fL (7.5-11.2); Platelet Count 187 10^3/uL (150-450)
[2024-02-27 06:18] LABS: Creatinine, Serum 0.76 mg/dL (0.51-0.95); Potassium 4.7 mmol/L (3.5-5.0); eGFR CKD-EPI 96.6 (>60)
[2024-02-27] MEDS: Vitamin THERAPEUTIC TAB PO SCH (08:27)
[2024-02-27 09:52] VITALS: BP 122/75
[2024-02-27] MEDS: Polyethylene Glycol 3350 17 GM PACKET PO SCH (10:01)
== END 2024-02-27 14:35 | disposition home or self-care (01) ==
LOC: OR 13:24 → SSU 13:24
PROVIDERS: ADMIT Orthopaedic Surgery Adult Reconstructive Orthopaedic Surgery; ATTEND Orthopaedic Surgery Adult Reconstructive Orthopaedic Surgery